=== PATIENT | female | born 1950 | race Caucasian/White ===

== ENCOUNTER 2018-05-29 11:04 | Emergency (ER) | payer BC, OTHER ==
[~2018-05-29] VITALS: Ht 167.6 cm; Wt 60.3 kg
[~2018-05-29 11:04] MED LIST: ALEN70TA2; PREG75CA; PRO20T; SUMA100T2
[2018-05-29 12:25] LABS: Basophils # (auto) 0 uL; Basophils % (auto) 0.7 % (0.0-2.0); Eosinophils # (auto) 0.1 uL; Eosinophils % (auto) 1.2 % (0.0-7.0); Hematocrit 39.5 % (36.0-46.0); Hemoglobin 13.5 g/dL (12.2-16.2); Lymphocytes # (auto) 1.2 uL; Lymphocytes % (auto) 23.8 % (10.0-50.0); Mean Corpuscular Hemoglobin 31.4 pg (28.0-32.0); Mean Corpuscular Hgb Conc. 34.2 g/dL (32.0-36.0); Mean Corpuscular Volume 91.7 fL (80.0-100.0); Monocytes # (auto) 0.4 uL; Monocytes % (auto) 8.1 % (0.0-12.0); Neutrophils # (auto) 3.3 uL; Neutrophils % (auto) 66.2 % (37.0-80.0); Nucleated Red Blood Cells % 0.1 %; Platelet Count (auto) 231 10^3/uL (140-450); Red Blood Cells 4.31 10^6/uL (4.0-5.20); Red Cell Distribution Width 13.3 % (11.8-14.3)
[2018-05-29 12:32] LABS: Calcium 8.6 mg/dL (8.5-10.1); Chloride 109 mmol/L (98-107); Sodium 143 mmol/L (136-145)
[2018-05-29 12:35] LABS: Albumin 3.9 g/dL (3.4-5.0); Anion Gap 10 (5-15); BUN/Creatinine Ratio 35.7; Blood Urea Nitrogen 25 mg/dL (7-18); Carbon Dioxide 24 mmol/L (21-32); GFR African American 107 mL/min; GFR Non-African American 88 mL/min; Glucose 88 mg/dL (74-106)
[2018-05-29 12:40] LABS: Alanine Aminotransferase 23 U/L (13-56); Alkaline Phosphatase 64 U/L (45-117); Aspartate Aminotransferase 21 U/L (15-37); Bilirubin, Total 0.4 mg/dL (0.2-1.0); Total Protein 7.4 g/dL (6.4-8.2)
[2018-05-29] MEDS ORDERED: IOHEXOL 350 MG/ML 100ML IJ ONE ×2 (13:13→13:48)
[2018-05-29 15:13] VITALS: BP 132/82
== END 2018-05-29 15:18 | disposition home or self-care (01) ==
LOC: EDBD 11:04 → ER 11:06
DX: R07.89 Other chest pain (principal); F41.9 Anxiety disorder, unspecified; Z88.5 Allergy status to narcotic agent; Z88.2 Allergy status to sulfonamides; Z79.899 Other long term (current) drug therapy; Z90.49 Acquired absence of other specified parts of digestive tract; Z90.710 Acquired absence of both cervix and uterus
CPT/HCPCS: 36415; 71046; 71275; 80053; 84484; 85025; 85379; 93005; 99284; Q9967

== ENCOUNTER → 2019-09-10 | Emergency (ER) | payer OTHER ==
[~2019-09-10] VITALS: Ht 167.6 cm; Wt 60.3 kg
[~2019-09-10] MED LIST changes: +ASPirin 81 mg TAB PO ONE; +LORazepam 0.5 MG TAB PO ONE
[2019-09-10 07:59] LABS: Basophils # (auto) 0 10 ^3/uL (0-0.2); Basophils % (auto) 0.7 % (0.0-2.0); Eosinophils # (auto) 0.1 10 ^3/uL (0-0.8); Eosinophils % (auto) 2.1 % (0.0-7.0); Hematocrit 40.8 % (36.0-46.0); Hemoglobin 13.9 g/dL (12.2-16.2); Lymphocytes # (auto) 1.1 10 ^3/uL (0.4-5.4); Lymphocytes % (auto) 18.7 % (10.0-50.0); Mean Corpuscular Hemoglobin 31.4 pg (28.0-32.0); Mean Corpuscular Volume 92.2 fL (80.0-100.0); Monocytes # (auto) 0.5 10 ^3/uL (0-1.3); Monocytes % (auto) 8.7 % (0.0-12.0); Neutrophils # (auto) 4.1 10 ^3/uL (1.6-8.6); Neutrophils % (auto) 69.8 % (37.0-80.0); Nucleated Red Blood Cells % 0.1 %; Platelet Count (auto) 222 10^3/uL (140-450); Red Blood Cells 4.42 10^6/uL (4.0-5.20); Red Cell Distribution Width 13.6 % (11.8-14.3); White Blood Cell 5.9 10^3/uL (4.4-10.8)
[2019-09-10 08:17] LABS: Urine WBC None Seen /hpf (0 - 5)
[2019-09-10 08:18] LABS: Alanine Aminotransferase 21 U/L (13-56); Albumin 3.8 g/dL (3.4-5.0); Anion Gap 5 (5-15); Blood Urea Nitrogen 24 mg/dL (7-18); Calcium 9.2 mg/dL (8.5-10.1); Carbon Dioxide 26 mmol/L (21-32); Chloride 108 mmol/L (98-107); Glucose 84 mg/dL (74-106); Sodium 139 mmol/L (136-145)
[2019-09-10 08:22] LABS: Alkaline Phosphatase 85 U/L (45-117); Aspartate Aminotransferase 21 U/L (15-37); BUN/Creatinine Ratio 30.4; Bilirubin, Total 0.5 mg/dL (0.2-1.0); GFR African American 93 mL/min; GFR Non-African American 77 mL/min; Total Protein 7.8 g/dL (6.4-8.2)
[2019-09-10 08:23] LABS: Urine Bacteria NONE SEEN /hpf (None Seen); Urine Blood Negative /uL (Negative); Urine Specific Gravity 1.006 (1.001-1.035)
[2019-09-10 09:10] VITALS: BP 133/59
== END | disposition home or self-care (01) ==
LOC: ER 06:58
DX: F41.9 Anxiety disorder, unspecified (principal); Z90.49 Acquired absence of other specified parts of digestive tract; Z90.710 Acquired absence of both cervix and uterus; Z88.5 Allergy status to narcotic agent; Z88.2 Allergy status to sulfonamides; Z91.048 Other nonmedicinal substance allergy status; Z79.899 Other long term (current) drug therapy
CPT/HCPCS: 36415; 71045; 80053; 81001; 84484; 85025; 93005

== ENCOUNTER 2020-10-28 13:47 | Emergency (ER) | payer OTHER ==
[~2020-10-28] VITALS: Ht 167.6 cm; Wt 60.3 kg
[~2020-10-28 13:47] MED LIST changes: -ASPirin 81 mg TAB PO ONE; -LORazepam 0.5 MG TAB PO ONE
[2020-10-28] MEDS ORDERED: PROMETHAZINE HCL 25 MG/ML 1ML IM ONE (15:45)
[2020-10-28] MEDS ORDERED: SUMAtriptan SUCCINATE 6 MG/0.5 ML VL SC ONE (15:45)
[2020-10-28 16:39] VITALS: BP 110/74
== END 2020-10-28 16:49 | disposition home or self-care (01) ==
LOC: ER 13:47
DX: G43.909 Migraine, unspecified, not intractable, without status migrainosus (principal); Z90.710 Acquired absence of both cervix and uterus; Z90.89 Acquired absence of other organs
CPT/HCPCS: 70450; 96372; 99284; J2550; J3030

== ENCOUNTER 2021-07-25 23:46 | Emergency (ER) | payer OTHER ==
[~2021-07-25] VITALS: Ht 167.6 cm; Wt 56.7 kg
[2021-07-26 01:00] VITALS: BP 117/66
[2021-07-26 01:20] LABS: Basophils # (auto) 0.1 10 ^3/uL (0-0.2); Basophils % (auto) 0.6 % (0.0-2.0); Eosinophils # (auto) 0.1 10 ^3/uL (0-0.8); Eosinophils % (auto) 1.2 % (0.0-7.0); Hematocrit 36.7 % (36.0-46.0); Hemoglobin 12.5 g/dL (12.2-16.2); Lymphocytes # (auto) 1.2 10 ^3/uL (0.4-5.4); Mean Corpuscular Hemoglobin 30.9 pg (28.0-32.0); Monocytes # (auto) 1.2 10 ^3/uL (0-1.3); Monocytes % (auto) 13.4 % (0.0-12.0); Neutrophils # (auto) 6.4 10 ^3/uL (1.6-8.6); Neutrophils % (auto) 71.8 % (37.0-80.0); Red Blood Cells 4.03 10^6/uL (4.0-5.20); Red Cell Distribution Width 12.7 % (11.8-14.3); White Blood Cell 8.8 10^3/uL (4.4-10.8)
[2021-07-26 01:32] LABS: Albumin 3.2 g/dL (3.4-5.0); BUN/Creatinine Ratio 13.9; Calcium 9.2 mg/dL (8.5-10.1); Potassium 3.9 mmol/L (3.5-5.1)
[2021-07-26 01:42] LABS: Bilirubin, Total 0.8 mg/dL (0.2-1.0)
[2021-07-26] MEDS ORDERED: diazePAM 2 MG TAB PO ONE (02:45)
[2021-07-27] MEDS ORDERED: HYDR-4798 PO (19:11)
== END 2021-07-26 04:53 | disposition home or self-care (01) ==
LOC: ER 23:46 → EDBD 23:46 → ER 07-26 04:53
DX: M54.50 Low back pain, unspecified (principal); R94.31 Abnormal electrocardiogram [ECG] [EKG]; Z76.5 Malingerer [conscious simulation]; Z90.710 Acquired absence of both cervix and uterus; Z88.2 Allergy status to sulfonamides; Z88.6 Allergy status to analgesic agent
CPT/HCPCS: 36415; 80053; 84484; 85025; 93005

== ENCOUNTER 2021-07-27 17:56 | Emergency (ER) | payer OTHER ==
[~2021-07-27] VITALS: Ht 167.6 cm; Wt 60.8 kg
[2021-07-27] MEDS ORDERED: MORPHINE SULFATE 4 MG/ML SYR/VIAL IM ONE (18:15)
[2021-07-27] MEDS ORDERED: HYDR-4798 PO (19:11)
[2021-07-27 21:23] VITALS: BP 148/89
== END 2021-07-27 21:59 | disposition home or self-care (01) ==
LOC: ER 17:56
DX: M79.10 Myalgia, unspecified site (principal); M54.2 Cervicalgia; Z90.49 Acquired absence of other specified parts of digestive tract; Z90.710 Acquired absence of both cervix and uterus; Z79.899 Other long term (current) drug therapy; Z88.5 Allergy status to narcotic agent; Z88.2 Allergy status to sulfonamides; Z88.8 Allergy status to other drugs, medicaments and biological substances
CPT/HCPCS: 96372; 99283; J2270

== ENCOUNTER 2022-02-07 10:42 | Emergency (ER) | payer OTHER ==
[~2022-02-07] VITALS: Ht 167.6 cm; Wt 64.0 kg
[~2022-02-07 10:42] MED LIST changes: +HYDR-4798 PO
[2022-02-07 10:58] VITALS: BP 139/79
[2022-02-07 11:30] LABS: Basophils # (auto) 0 10 ^3/uL (0-0.2); Basophils % (auto) 0.7 % (0.0-2.0); Eosinophils # (auto) 0.1 10 ^3/uL (0-0.8); Eosinophils % (auto) 1.2 % (0.0-7.0); Hematocrit 40.2 % (36.0-46.0); Hemoglobin 13.3 g/dL (12.2-16.2); Lymphocytes # (auto) 1.6 10 ^3/uL (0.4-5.4); Lymphocytes % (auto) 31.3 % (10.0-50.0); Mean Corpuscular Hemoglobin 30.5 pg (28.0-32.0); Mean Corpuscular Hgb Conc. 33.2 g/dL (32.0-36.0); Mean Corpuscular Volume 91.6 fL (80.0-100.0); Monocytes # (auto) 0.5 10 ^3/uL (0-1.3); Monocytes % (auto) 9.7 % (0.0-12.0); Neutrophils # (auto) 2.9 10 ^3/uL (1.6-8.6); Neutrophils % (auto) 57.1 % (37.0-80.0); Nucleated Red Blood Cells % 0.1 %; Red Blood Cells 4.38 10^6/uL (4.0-5.20); Red Cell Distribution Width 13.8 % (11.8-14.3)
[2022-02-07 11:43] LABS: Albumin 4.1 g/dL (3.4-5.0); Calcium 9.4 mg/dL (8.5-10.1); Potassium 4.6 mmol/L (3.5-5.1)
[2022-02-07 11:44] LABS: INR 0.95 (0.9-1.15); Partial Thromboplastin Time 26.8 sec (24.6-33.4)
[2022-02-07 13:09] LABS: BUN/Creatinine Ratio 28.8; Bilirubin, Total 0.5 mg/dL (0.2-1.0); Total Protein 7.4 g/dL (6.4-8.2)
== END 2022-02-07 14:06 | disposition home or self-care (01) ==
LOC: EDUNIT# 10:42 → EDBD 10:42 → ER 10:42
DX: R07.89 Other chest pain (principal); F41.9 Anxiety disorder, unspecified; M79.18 Myalgia, other site; Z90.710 Acquired absence of both cervix and uterus; Z88.2 Allergy status to sulfonamides; Z88.8 Allergy status to other drugs, medicaments and biological substances
CPT/HCPCS: 36415; 71046; 80053; 83880; 84484; 85025; 85610; 85730; 93005

== ENCOUNTER 2023-10-16 18:03 | Inpatient (IN) | payer OTHER ==
[~2023-10-16] VITALS: Ht 167.6 cm; Wt 63.6 kg
[~2023-10-16 18:03] MED LIST changes: -ALEN70TA2; +ALEN70TA21
[2023-10-16 19:30] VITALS: PULSE 79; RESP 26; O2SAT 97
[2023-10-16 19:57] LABS: Basophils # (auto) 0 10 ^3/uL (0-0.2); Basophils % (auto) 0.6 % (0.0-2.0); Eosinophils # (auto) 0.1 10 ^3/uL (0-0.8); Eosinophils % (auto) 1.5 % (0.0-7.0); Hematocrit 37.4 % (36.0-46.0); Hemoglobin 12.4 g/dL (12.2-16.2); Lymphocytes # (auto) 1.5 10 ^3/uL (0.4-5.4); Lymphocytes % (auto) 18.1 % (10.0-50.0); Mean Corpuscular Hemoglobin 30.8 pg (28.0-32.0); Mean Corpuscular Hgb Conc. 33.2 g/dL (32.0-36.0); Mean Corpuscular Volume 92.7 fL (80.0-100.0); Monocytes # (auto) 0.8 10 ^3/uL (0-1.3); Monocytes % (auto) 9.7 % (0.0-12.0); Neutrophils # (auto) 5.6 10 ^3/uL (1.6-8.6); Neutrophils % (auto) 70.1 % (37.0-80.0); Red Blood Cells 4.03 10^6/uL (4.0-5.20); Red Cell Distribution Width 13.4 % (11.8-14.3)
[2023-10-16 20:10] LABS: Chloride 111 mmol/L (98-107); Potassium 3.8 mmol/L (3.5-5.1); Sodium 142 mmol/L (136-145)
[2023-10-16 20:11] LABS: Anion Gap 4 (5-15); Carbon Dioxide 27 mmol/L (20-30)
[2023-10-16 20:12] LABS: Calcium 9.4 mg/dL (8.7-10.4)
[2023-10-16 20:17] LABS: BUN/Creatinine Ratio 24.5 (10.0-20.0); Blood Urea Nitrogen 23 mg/dL (9-23); Glucose 101 mg/dL (74-106); Lipase 164 U/L (12-53)
[2023-10-16 21:16] LABS: Urine Bacteria None Seen /hpf (None Seen)
[2023-10-16 21:33] LABS: Urine Blood Negative /uL (Negative); Urine Clarity Clear (Clear); Urine Color Light-Yellow (Yellow); Urine Protein, UAD Negative (Negative); Urine Specific Gravity 1.012 (1.001-1.035); Urine Urobilinogen Normal (Negative); Urine WBC 1 /hpf (0 - 5); Urine pH 7.5 (5.0-9.0)
[2023-10-17] VITALS (9 sets, daily range): BP systolic 112–150; BP diastolic 60–77; PULSE 63–83; RESP 1–19; TEMP 97.4–98.2; O2SAT 95–98
[2023-10-17] MEDS ORDERED: MORPHINE SULFATE INJ 2 MG/ml SYRG IV PRN (00:15)
[2023-10-17] MEDS ORDERED: ACETAMINOPHEN 325 MG TAB PO PRN (00:15)
[2023-10-17] MEDS ORDERED: NITROGLYCERIN 0.4 MG SL TAB SL PRN (00:15)
[2023-10-17] MEDS ORDERED: DOCUSATE SOD 100 MG CAP PO PRN (00:15)
[2023-10-17] MEDS ORDERED: ONDANSETRON HCL 4 MG/2 ML VIAL IV PRN (00:15)
[2023-10-17] MEDS ORDERED: HYDROcodone-ACET 5/325MG TAB PO PRN (00:15)
[2023-10-17] MEDS: SODIUM CHLORIDE 0.9% 1,000 ML IV SCH (00:32)
[2023-10-17] MEDS: DOCUSATE SOD 100 MG CAP PO SCH (03:19)
[2023-10-17 06:31] LABS: Chloride 113 mmol/L (98-107); Potassium 4.2 mmol/L (3.5-5.1); Sodium 143 mmol/L (136-145)
[2023-10-17 06:32] LABS: Anion Gap 5 (5-15); Carbon Dioxide 25 mmol/L (20-30)
[2023-10-17 06:33] LABS: Calcium 9.1 mg/dL (8.5-10.1)
[2023-10-17 06:37] LABS: BUN/Creatinine Ratio 25.3 (10.0-20.0); Blood Urea Nitrogen 19 mg/dL (9-23); Glucose 84 mg/dL (74-106)
[2023-10-17 06:53] LABS: Basophils # (auto) 0 10 ^3/uL (0-0.2); Basophils % (auto) 0.8 % (0.0-2.0); Eosinophils # (auto) 0.1 10 ^3/uL (0-0.8); Eosinophils % (auto) 1.9 % (0.0-7.0); Hematocrit 36.9 % (36.0-46.0); Hemoglobin 12.5 g/dL (12.2-16.2); Lymphocytes # (auto) 1.3 10 ^3/uL (0.4-5.4); Lymphocytes % (auto) 24.2 % (10.0-50.0); Mean Corpuscular Hemoglobin 31.5 pg (28.0-32.0); Mean Corpuscular Volume 92.8 fL (80.0-100.0); Monocytes # (auto) 0.5 10 ^3/uL (0-1.3); Monocytes % (auto) 9.7 % (0.0-12.0); Neutrophils # (auto) 3.3 10 ^3/uL (1.6-8.6); Neutrophils % (auto) 63.4 % (37.0-80.0); Red Blood Cells 3.97 10^6/uL (4.0-5.20); Red Cell Distribution Width 13.7 % (11.8-14.3); White Blood Cell 5.2 10^3/uL (4.4-10.8)
[2023-10-17 06:54] LABS: Lipase 69 U/L (12-53)
[2023-10-17] MEDS: ENOXAPARIN SOD 40 MG/0.4 ML SYRINGE SC SCH (09:51)
== END 2023-10-17 21:18 | disposition home or self-care (01) | DRG 440 ==
LOC: EDBD 18:03 → ER 18:09 → OVERFLOW 10-17 00:09 → WEST WING 10-17 03:51 → OBSVTOIN 10-17 09:10
PROVIDERS: ADMIT Nurse Practitioner Family; ATTEND Internal Medicine
DX: K85.90 Acute pancreatitis without necrosis or infection, unspecified (principal); K59.00 Constipation, unspecified; M81.0 Age-related osteoporosis without current pathological fracture; F41.9 Anxiety disorder, unspecified; F32.A Depression, unspecified; Z88.2 Allergy status to sulfonamides; Z90.710 Acquired absence of both cervix and uterus; Z91.048 Other nonmedicinal substance allergy status; Z79.899 Other long term (current) drug therapy
CPT/HCPCS: 36415; 74176; 80048; 81001; 83690; 85025; G0378

== ENCOUNTER 2024-08-17 08:20 | Emergency (ER) | payer OTHER ==
[~2024-08-17] VITALS: Ht 167.6 cm; Wt 62.7 kg
[2024-08-17 09:31] VITALS: BP 129/78; PULSE 75; RESP 17; TEMP 97.9; O2SAT 98
--- NOTE | 2024-08-17 10:53 | DVH ---
BILATERAL LOWER EXTREMITY VENOUS DOPPLER CLINICAL HISTORY: BILATERAL PAIN TO THE CALFS Technique: Duplex Doppler evaluation of the deep venous systems of both lower extremities from the co mmon femoral veins to the popliteal veins including color Doppler and spectral/pulsed waveform analys is was performed. COMPARISON: None FINDINGS: The right and left common femoral, superficial femoral, popliteal, posterior tibial veins and trifur cations appear patent with normal augmentation, phasicity, compressibility and color-flow. IMPRESSION: 1. There is no sonographic evidence for DVT in the lower extremities. HS:Y
--- NOTE | 2024-08-17 10:59 | ED.PDOC ---
Musculoskeletal HPI Comments 24-year-old presents with a chief complaint of bilateral posterior calf pain over four weeks. Pain has been persistent and onset occurred after her Frisian Zaidi ran into her with a reclined. Pain worsens with ambulation. Pain is described as throbbing rated as mild to moderate Denies chest pain shortness of breath Chief Complaint: Lower Extremity Time Seen by MD: 08:56 Primary Care Provider: miguel Reviewed Notes: Nurses Notes, Medications, Allergies Allergies: Coded Allergies: Codeine (Verified Allergy, Unknown, 09/10/19) Sulfa Drugs (Verified Allergy, Unknown, 09/10/19) Uncoded Allergies: CODINE (Allergy, Intermediate, 12/08/10) SULFA (Allergy, Intermediate, 12/08/10) TAPE (Allergy, Mild, 12/08/10) Home Meds Active Scripts Hydrocodone-Acetaminophen (Hydrocodone Bitartrate/AC 10-325 mg) 1 Tab Tab, 1 TAB PO Q6HP PRN, #20 TAB Prov:INGRID HART DO 07/27/21 Reported Medications Sumatriptan Succinate (Imitrex) 100 Mg Tab, PRN 12/08/10 Propranolol Hcl (Inderal) 20 Mg Tb, 10 BID 12/08/10 Pregabalin (Lyrica) 75 Mg Cap, BID 12/08/10 Alendronate Sodium (Fosamax) 70 Mg Tab, QWEEKLY 12/08/10 Information Source: Patient Mode of Arrival: Ambulatory Past Medical History PAST MEDICAL HISTORY: Anxiety, Depression Surgical History: Appendectomy, Hernia Repair, Hysterectomy TIME STUDY TECHNOLOGIST History: No Pertinent TIME STUDY TECHNOLOGIST History Family History Family History: No family hx of Heart binu, No family hx of HTN Family History (Other): Blood clots Social History Smoker: Non-Smoker Alcohol: Rarely Drugs: Denies Drug Use Lives In: Home All Other Systems: Reviewed and Negative (per hpi) Physical Exam General Appearance: No Apparent Distress, Normal HEENT: Normal ENT Inspection, Pharynx Normal, TMs Normal Neck: Full Range of Motion, Non-Tender, Normal, Normal Inspection Respiratory: Chest Non-Tender, Lungs Clear, No Accessory Muscle Use, No Respiratory Distress, Normal Breath Sounds Cardiovascular: No Edema, No JVD, No Murmur, No Gallop, Normal Peripheral Pulses, Regular Rate/Rhythm Breast Exam: Deferred Gastrointestinal: No Organomegaly, Non Tender, No Pulsatile Mass, Normal Bowel Sounds, Soft Genitalia: Deferred Pelvic: Deferred Rectal: Deferred Extremities: No calf tenderness, Normal capillary refill, Normal inspection, Normal range of motion, Non-tender, No pedal edema Musculoskeletal : Location: Bilateral Extremity Location: Leg (No erythema below the knees. Mild swelling bilater ally. No pitting edema. Homans test negative) Apperance: Normal Neurologic: Alert, academic advising director II-XII nml as Tested, No Motor Deficits, Normal Affect, Normal Mood, No Sensory Deficits Cerebellar Function: Normal Reflexes: Normal Skin: Dry, Normal Color, Warm Lymphatic: No Adenopathy Was a procedure done? Was a procedure done?: No Differential Diagnosis EXT Differential Diagnosis: Deep Vein Thrombosis, Sprain X-Ray, Labs, Meds, VS Vital Signs Date Time Temp Pulse Resp B/P (MAP) Pulse Ox O2 Delivery O2 Flow Rate FiO2 08/17/24 09:31 75 17 98 Room Air 08/17/24 09:31 97.9 75 17 129/78 (95) 98 97.9 08/17/24 08:41 97.9 75 17 129/78 (95) 98 97.9 X-Ray, Labs, Meds, VS Comment 74-year-old presents with signs and symptoms of a possible DVT. Differentials considered but not limited to thrombophlebitis, trauma, venous stasis. Bilateral ultrasound ordered and findings were negative. The patient is overall stable in the emergency department. VSS on room air. No other concern for any red flags at this time. On reevaluation, patient had symptomatic improvement. Patient is stable for discharge at this time. External notes reviewed. Test results and diagnostic imaging interpreted. All diagnostic findings, discharge care, education and instructions provided Follow-up with PCP in 2 to 3 days Patient verbalized understanding and agreed to treatment plan Vital signs stable, afebrile, no acute distress noted Patient ambulatory with strong steady gait Advised to return precautions for any new or worsening symptoms, return to ER immediately for re-evaluation Patient is aware that the purpose of this visit was for an acute medical emergency requiring emergent stabilization. Chronic conditions, including malignancies have not been ruled out. Patient is instructed to follow up with PCP as directed and discharge instructions for continued care and workup. If yahaira ble to arrange follow-up, patient is to return to the emergency department for reassessment. Patient (parent or legal guardian if applicable) was given verbal and written discharge instructions and acknowledges understanding. Time of 1ST Reevaluation: 10:57 Reevaluation 1ST: Improved Patient Education/Counseling: Diagnosis, Treatment Family Education/Counseling: Diagnosis, Treatment Departure 1 Departure Time of Disposition: 10:59 Impression: Primary Impression: Leg pain Qualified Codes: M79.604 - Pain in right leg; M79.605 - Pain in left leg Disposition: 01 HOME / SELF CARE / HOMELESS Condition: Stable Discharged With: Self Critical Care Note Critical Care Time?: No Stability Stability form required: No Heart Score Heart Score: Heart Score Response (Comments) Value History N/A 0 EKG N/A 0 Age N/A 0 Risk Factors N/A 0 Troponin N/A 0 Total 0 ASHLY ROMAN LINE DECORATOR Aug 17, 2024 10:59
== END 2024-08-17 11:40 | disposition home or self-care (01) ==
LOC: ER 08:20
DX: M79.669 Pain in unspecified lower leg (principal); F41.9 Anxiety disorder, unspecified; F32.A Depression, unspecified; Z90.710 Acquired absence of both cervix and uterus; Z98.890 Other specified postprocedural states; Z90.49 Acquired absence of other specified parts of digestive tract; Z88.5 Allergy status to narcotic agent; Z88.2 Allergy status to sulfonamides
CPT/HCPCS: 93970

== ENCOUNTER 2024-11-22 08:26 | Emergency (ER) | payer OTHER ==
[~2024-11-22] VITALS: Ht 167.6 cm; Wt 62.0 kg
--- NOTE | 2024-11-22 09:02 | ED.PDOC ---
Musculoskeletal HPI Comments 74 year old female with a past medical history of arthritis, DDD, osteoporosis, anxiety, presents to the emergency department with a chief complaint of Lt leg pain onset 3 months. Patient states she had an injury in June 2024, fell, landed on LT side and since then has seen 4 different doctors, has been tested for blood clots, was negative. Patient has a follow up appointment with a vascular surgeon next month. Patient noticed for the past week, pain on LT groin has worsen, radiates to inner thigh. She has been taking Tramadol and low dosage Aspirin with no relief of symptoms. Patient also noticed pain and swelling on bilateral lower extremities worsens with standing and ambulation, Lt toes tin gling sensation. No other symptoms or modifying factors present at this time. Denies previous surgeries Denies fever chills night sweats nausea vomiting Denies CP/SOB Chief Complaint: Lower Extremity Time Seen by MD: 08:45 Primary Care Provider: miguel Reviewed Notes: Nurses Notes, Medications, Allergies Allergies: Coded Allergies: Codeine (Verified Allergy, Unknown, 09/10/19) Sulfa Drugs (Verified Allergy, Unknown, 09/10/19) Uncoded Allergies: CODINE (Allergy, Intermediate, 12/08/10) SULFA (Allergy, Intermediate, 12/08/10) TAPE (Allergy, Mild, 12/08/10) Home Meds Active Scripts Hydrocodone-Acetaminophen (Hydrocodone Bitartrate/AC 10-325 mg) 1 Tab Tab, 1 TAB PO Q6HP PRN, #20 TAB Prov:INGRID HART DO 07/27/21 Reported Medications Sumatriptan Succinate (Imitrex) 100 Mg Tab, PRN 12/08/10 Propranolol Hcl (Inderal) 20 Mg Tb, 10 BID 12/08/10 Pregabalin (Lyrica) 75 Mg Cap, BID 12/08/10 Alendronate Sodium (Fosamax) 70 Mg Tab, QWEEKLY 12/08/10 Information Source: Patient Mode of Arrival: Ambulatory Location: Bilateral Extremity Location: Leg Timing: Months Prehospital treatment: Other (Tramadol, aspirin) Severity: Moderate Able to Move Extremity: Yes Bear Weight: Limited Pain: Moderate Symptoms: Swelling, Pain DVT Risk Factors: NONE History of: Arthritis Associated signs and symptoms: Numbness (Lt toes), Leg pain (bilateral) Past Medical History PAST MEDICAL HISTORY: Anxiety, Arthritis, Depression Past Medical History (Other): DDD, osteoporosis Surgical History: Appendectomy, Hernia Repair, Hysterectomy SUPPORT MANAGER History: No Pertinent SUPPORT MANAGER History Family History Family History: No family hx of Heart binu, No family hx of HTN Family History (Other): Blood clots Social History Smoker: Non-Smoker Alcohol: Rarely Drugs: Denies Drug Use Lives In: Home All Other Systems: Reviewed and Negative (as per HPI) Physical Exam General Appearance: Normal HEENT: Normal ENT Inspection, Pharynx Normal, TMs Normal Neck: Full Range of Motion, Non-Tender, Normal, Normal Inspection Respiratory: Chest Non-Tender, Lungs Clear, No Accessory Muscle Use, No Respiratory Distress, Normal Breath Sounds Cardiovascular: No Murmur, No Gallop, Regular Rate/Rhythm Breast Exam: Deferred Gastrointestinal: No Organomegaly, Non Tender, No Pulsatile Mass, Normal Bowel Sounds, Soft Genitalia: Deferred Pelvic: Deferred Rectal: Deferred Extremities: No calf tenderness, Normal capillary refill, Normal inspection, Normal range of motion, Non-tender, No pedal edema Musculoskeletal : Location: Bilateral Extremity Location: Leg (Bilateral lower extremity: No deformity, no ecchymosis, no erythema, no abrasions no lacerations no open wounds. Mild bilateral lower extremity edema. Plus one pitting edema bilaterally. Full passive and active range of motion of the bilateral knees. Dorsiflexion plantar flexion strong. No pain to the medial lateral malleolus. No pain to the Achilles. DP 1+ bilaterally. Cap refill less than three and neurovascularly sensation is intact) Apperance: Normal Neurologic: Alert, cath lab technologist II-XII nml as Tested, No Motor Deficits, Normal Affect, Normal Mood, No Sensory Deficits Cerebellar Function: Normal Reflexes: Normal Skin: Dry, Normal Color, Warm Lymphatic: No Adenopathy Was a procedure done? Was a procedure done?: No Differential Diagnosis EXT Differential Diagnosis: Fracture, Sprain, Arthritis, Bursitis, Other X-Ray, Labs, Meds, VS Vital Signs Date Time Temp Pulse Resp B/P (MAP) Pulse Ox O2 Delivery O2 Flow Rate FiO2 11/22/24 11:10 84 17 100 Room Air 11/22/24 11:10 98.7 84 17 144/86 (105) 100 98.7 11/22/24 09:16 18 98 Room Air* 0 21 11/22/24 09:05 83 11/22/24 08:35 98.7 104 24 94/72 (79) 97 98.7 11/22/24 08:34 98.7 104 24 94/72 (79) 97 98.7 Lab Test 11/22/24 09:30 11/22/24 09:15 Range/Units Urine Color Yellow Yellow Urine Clarity Clear Clear Urine pH 5.5 5.0-9.0 Urine Specific [place] 1.023 1.001-1.035 Urine Protein Negative Negative Urine Ketones 1+ H Negative Urine Blood Negative Negative /uL Urine Nitrite Negative Negative Urine Bilirubin Negative Negative Urine Urobilinogen Normal Negative mg/dL Urine Leukocyte Esterase 3+ Negative /uL Urine RBC 4 0 - 4 /hpf Urine Microscopic WBC 2 0-5 /HPF Urine Squamous Epithelial Cells Few <5 /hpf Urine Bacteria Few H None Seen /hpf Urine Mucus Few None Seen Urine Glucose Normal Normal mg/dL White Blood Count 8.4 4.4-10.8 10^3/uL Red Blood Count 4.36 4.0-5.20 10^6/uL Hemoglobin 13.7 12.2-16.2 g/dL Hematocrit 39.8 36.0-46.0 % Mean Corpuscular Volume 91.3 80.0-100.0 fL Mean Corpuscular Hemoglobin 31.4 28.0-32.0 pg Mean Corpuscular Hemoglobin Concent 34.4 32.0-36.0 g/dL Red Cell Distribution Width 13.5 11.8-14.3 % Platelet Count 218 140-450 10^3/uL Mean Platelet Volume 7.9 6.9-10.8 fL Neutrophils (%) (Auto) 70.2 37.0-80.0 % Lymphocytes (%) (Auto) 18.7 10.0-50.0 % Monocytes (%) (Auto) 9.1 0.0-12.0 % Eosinophils (%) (Auto) 1.3 0.0-7.0 % Basophils (%) (Auto) 0.7 0.0-2.0 % Neutrophils # (Auto) 5.9 1.6-8.6 10 ^3/uL Lymphocytes # (Auto) 1.6 0.4-5.4 10 ^3/uL Monocytes # (Auto) 0.8 0-1.3 10 ^3/uL Eosinophils # (Auto) 0.1 0-0.8 10 ^3/uL Basophils # (Auto) 0.1 0-0.2 10 ^3/uL Nucleated Red Blood Cells 0.0 % Erythrocyte Sedimentation Rate 20 0-20 mm/hr Sodium Level 140 136-145 mmol/L Potassium Level 4.0 3.5-5.1 mmol/L Chloride Level 104 98-107 mmol/L Carbon Dioxide Level 27 20-31 mmol/L Anion Gap 9 5-15 Blood Urea Nitrogen 27 H 9-23 mg/dL Creatinine 0.87 0.550-1.02 mg/dL Glomerular Filtration Rate Calc 70 >90 mL/min BUN/Creatinine Ratio 31.0 H 10.0-20.0 Serum Glucose 83 74-106 mg/dL Calcium Level 10.3 8.7-10.4 mg/dL Total Bilirubin 0.8 0.2-1.0 mg/dL Aspartate Amino Transferase (AST) 28 13-40 U/L Alanine Aminotransferase (ALT) 17 7-40 U/L Alkaline Phosphatase 91 46-116 U/L Troponin I High Sensitivity < 3 L </=34 ng/L C-Reactive Protein High Sensitivity 1.64 H <1.0 mg/dL Total Protein 7.3 5.7-8.2 g/dL Albumin 4.9 H 3.2-4.8 g/dL X-Ray, Labs, Meds, VS Comment 74 year old female with a past medical history of arthritis, DDD, osteoporosis, anxiety, presents to the emergency department with a chief complaint of Lt leg pain onset 3 months. Patient arrives alert and oriented, ABC's intact, afebrile, vital signs stable, saturating well in room air CBC was ordered to exclude anemia, blood loss, or infection. CMP was ordered to exclude electrolyte abnormalities, renal failure, dehydration, hyperglycemia and/or liver enzyme abnormalities. Troponin was ordered to rule out myocardial infarction, or congestive heart failure. Urinalysis was ordered to rule out UTI or hematuria..3 ESR was ordered. C-reactive protein was ordered. Diagnostic imaging ordered by me and results interpreted by radiology : US BILAT LOWER DVT: US BILAT LOWER EXT ART DUPLEX: XY L HIP COMPLETE: XY CHEST 1 VIEW: The patient presents with signs and symptoms concerning for deep venous thrombosis. The differential diagnosis includes but is not limited to: DVT, thrombophlebitis, trauma, venous stasis, peripheral edema, cellulitis. PE Workup: The patient denies having any shortness of breath, dyspnea on exertion. Additionally, the patient was not hypoxic therefore no indication for further chest imaging to evaluate for PE. The patient was overall stable while in the ED. They had normal oxygenation on room air and did not require any supplemental oxygen. Heart rate has remained stable while in the ED. Nontoxic appearing. No lymphangitic spread visible. No fluid pockets or fluctuance concerning for abscess. Low concern for cellulitis or osteomyelitis. No evidence of phlegmasia cerulea or alba dolens. Focal and unilateral nature not consistent with heart failure. Patient is stable for discharge at this time. External notes reviewed. Test results and diagnostic imaging interpreted. All diagnostic findings, discharge care, education and instructions provided Follow-up with PCP in 2 to 3 days Patient verbalized understanding and agreed to treatment plan Vital signs stable, afebrile, no acute distress noted Patient ambulatory with strong steady gait Advised to return precautions for any new or worsening symptoms, return to ER immediately for re-evaluation Patient is aware that the purpose of this visit was for an acute medical emergency requiring emergent stabilization. Chronic conditions, including malignancies have not been ruled out. Patient is instructed to follow up with PCP as directed and discharge instructions for continued care and workup. If unable to arrange follow-up, patient is to return to the emergency department for reassessment. Patient (parent or legal guardian if applicable) was given verbal and written discharge instructions and acknowledges understanding. Additional MDM Review of External, Non-ED records: External records reviewed. Discussion with independent historian (EMS, family) history obtained from the patient/parents (if applicable) at bedside Chronic conditions affecting care: DDD, arthritis, osteoporosis, anxiety Social determinants of health affecting care: None Consideration of admission (observation or admission): I considered escalation of care to admission for this patient, however given the reassuring workup, the patient is safe for outpatient management. Time of 1ST Reevaluation: 09:15 Reevaluation 1ST: Improved Time of 2ND Reevaluation: 11:00 Reevaluation 2ND: Improved Patient Education/Counseling: Diagnosis, Treatment Family Education/Counseling: No Family Present Departure 1 Departure Time of Disposition: 11:41 Impression: Primary Impression: Bilateral hip joint arthritis Disposition: 01 HOME / SELF CARE / HOMELESS Condition: Fair Discharged With: Self Critical Care Note Critical Care Time?: No Stability Stability form required: No Heart Score Heart Score: Heart Score Response (Comments) Value History N/A 0 EKG N/A 0 Age N/A 0 Risk Factors N/A 0 Troponin N/A 0 Total 0 I personally scribed for ASHLY ROMAN NP ([email or web address]) on 11/22/24 at 09:02. Electronically submitted by Mirna Crisostomo ([email or web address]). I personally scribed for ASHLY ROMAN NP ([email or web address]) on 11/22/24 at 09:05. Electronically submitted by Mirna Crisostomo ([email or web address]). ASHLY ROMAN NP Nov 22, 2024 09:02
--- NOTE | 2024-11-22 09:14 | ECG ---
[facility] Test Date: 2024-11-22 Test Time: 09:05:28 Pat Name: JOSÉ MANUEL CHRISTINA Department: [facility] ED Patient ID: [facility]-[id number] Room: Gender: F Data Scientist: SS : 1950 Requested By: ASHLY ROMAN Order Number: [id number] Reading MD: Jose Burr Measurements Intervals [place] Rate: 83 P: 63 VA: 138 QRS: 100 QRSD: 91 T: 31 QT: 372 QTc: 437 Interpretive Statements Sinus rhythm Right axis deviation Low voltage, precordial leads Borderline T abnormalities, anterior leads Baseline wander in lead(s) I,III,aVL Electronically Signed On 11-24-2024 17:49:42 PDT by Jose Burr Please click the below link to view image of tracing.
[2024-11-22 09:16] VITALS: RESP 18; O2SAT 98
[2024-11-22 09:43] LABS: Hematocrit 39.8 % (36.0-46.0); Hemoglobin 13.7 g/dL (12.2-16.2); Mean Corpuscular Hemoglobin 31.4 pg (28.0-32.0); Mean Corpuscular Volume 91.3 fL (80.0-100.0); Nucleated Red Blood Cells % 0.0 %
--- NOTE | 2024-11-22 09:43 | DVH ---
INDICATION: Pain TECHNIQUE: Single AP view of the pelvis was obtained. COMPARISON: None FINDINGS: The pelvic ring appears intact.There is no evidence of acute fracture or dislocation.Bilate ral hip joints appear unremarkable without evidence of joint space narrowing. The lower lumbar spine and bilateral sacroiliac joints appear unremarkable without evidence of fusion.The alignment is anato mical.The surrounding soft tissues are unremarkable. IMPRESSION: No acute fracture. Mild bilateral osteoarthritis.
--- NOTE | 2024-11-22 09:43 | DVH ---
CHEST RADIOGRAPH Indication: r/o pna, serious pathology Technique: Single frontal view of the chest was obtained Comparison: EKG on DOS: 02/07/22, CHEST PORTABLE on DOS: 09/10/19 FINDINGS: Lines and Tubes: None Lungs: No focal consolidation. Pleura: No effusion. No pneumothorax. Cardiomediastinal contours: Unremarkable Bones: No acute osseous abnormality. IMPRESSION: No acute cardiopulmonary disease.
[2024-11-22 09:53] LABS: Alanine Aminotransferase 17 U/L (7-40); Alkaline Phosphatase 91 U/L (46-116); Anion Gap 9 (5-15); BUN/Creatinine Ratio 31.0 (10.0-20.0); Calcium 10.3 mg/dL (8.7-10.4); Carbon Dioxide 27 mmol/L (20-31); Chloride 104 mmol/L (98-107); Glucose 83 mg/dL (74-106); Potassium 4.0 mmol/L (3.5-5.1); Sodium 140 mmol/L (136-145); Total Protein 7.3 g/dL (5.7-8.2)
[2024-11-22 09:54] LABS: Bilirubin, Total 0.8 mg/dL (0.2-1.0)
[2024-11-22 10:04] LABS: Albumin 4.9 g/dL (3.2-4.8); Blood Urea Nitrogen 27 mg/dL (9-23)
[2024-11-22 11:10] VITALS: BP 144/86; PULSE 84; RESP 17; TEMP 98.7; O2SAT 100
[2024-11-22 11:11] LABS: Urine Protein, UAD Negative (Negative)
--- NOTE | 2024-11-22 11:34 | DVH ---
Indication: R/o PAD Technique: Real- time ultrasound images of the lower extremity with grayscale, color, and spectral wave Doppler. Comparison: None Findings: Biphasic / triphasic waveforms throughout the bilateral lower extremities. Peak systolic velocities are as follows (in cm/s): Right: Common femoral artery: 80 Profunda femoris: 67 Proximal superficial femoral: 89 Mid superficial femoral artery: 56 Distal superficial femoral artery: 65 Popliteal artery: 59 Posterior tibial artery: 67 Dorsalis pedis artery: 56 Left: Common femoral artery: 99 Profunda femoris: 80 Proximal superficial femoral: 108 Mid superficial femoral artery: 79 Distal superficial femoral artery: 58 Popliteal artery: 62 Posterior tibial artery: 73 Dorsalis pedis artery: 54 Impression: No sonographic evidence for hemodynamically significant stenosis.
--- NOTE | 2024-11-22 11:36 | DVH ---
Technique: Real-time ultrasound imaging, with color Doppler and compression of the bilateral common femoral vein, femoral vein, greater saphenous vein, and popliteal vein. Indication: r/o dvt Comparison: US BILAT LOWER DVT on DOS: 08/17/24 Findings: There is normal compressibility and flow augmentation in all of the imaged deep veins. There are no f illing defects. Impression: No evidence of DVT in the bilateral lower extremities
== END 2024-11-22 12:01 | disposition home or self-care (01) ==
LOC: ER 08:26
DX: M19.90 Unspecified osteoarthritis, unspecified site (principal); M25.551 Pain in right hip; M25.552 Pain in left hip; F41.9 Anxiety disorder, unspecified; F32.A Depression, unspecified; Z90.49 Acquired absence of other specified parts of digestive tract; Z90.710 Acquired absence of both cervix and uterus; Z98.890 Other specified postprocedural states; Z88.2 Allergy status to sulfonamides; Z88.5 Allergy status to narcotic agent
CPT/HCPCS: 36415; 71045; 73502; 80053; 81001; 84484; 85025; 85652; 86141; 93005; 93925; 93970

== ENCOUNTER 2025-02-23 19:45 | Emergency (ER) | payer OTHER ==
[~2025-02-23] VITALS: Ht 167.6 cm; Wt 63.2 kg
[2025-02-23 19:49] VITALS: TEMP 98.3
--- NOTE | 2025-02-23 20:03 | ECG ---
[facility] Test Date: 2025-02-23 Test Time: 20:01:05 Pat Name: JOSÉ MANUEL CHRISTINA Department: ED Room: Gender: F Parking Worker: TARIQ : 1950 Requested By: REBECA COVARRUBIAS Order Number: [id number] Reading MD: Measurements Intervals [place] Rate: 72 P: 35 ND: 151 QRS: 69 QRSD: 87 T: 36 QT: 411 QTc: 450 Interpretive Statements Sinus rhythm Probable left atrial enlargement Consider anterior infarct Please click the below link to view image of tracing.
--- NOTE | 2025-02-23 20:20 | DVH ---
CHEST RADIOGRAPH Indication: CHEST PAIN Technique: Frontal and lateral view of the chest was obtained Comparison: XY CHEST XRAY 1 VIEW on DOS: 11/22/24, CR CHEST 2 VIEW on DOS: 02/02/24, CHEST TWO VIEWS RO UTINE on DOS: 02/07/22, CXR2 on DOS: 02/07/22, EKG on DOS: 02/07/22 FINDINGS: Lines and Tubes: None Lungs: Clear Pleura: No effusion. No pneumothorax. Cardiomediastinal contours: Unremarkable Bones: Unremarkable IMPRESSION: 1. No evidence of acute disease.
[2025-02-23 20:28] LABS: Potassium 4.1 mmol/L (3.5-5.1)
[2025-02-23 20:29] LABS: Anion Gap 10 (5-15); Calcium 9.6 mg/dL (8.7-10.4); Carbon Dioxide 28 mmol/L (20-31)
[2025-02-23 20:30] LABS: Hematocrit 38.7 % (36.0-46.0); Hemoglobin 13.0 g/dL (12.2-16.2); Mean Corpuscular Hemoglobin 30.6 pg (28.0-32.0); Mean Corpuscular Volume 90.9 fL (80.0-100.0); Nucleated Red Blood Cells % 0.1 %
[2025-02-23 20:34] LABS: BUN/Creatinine Ratio 30.9 (10.0-20.0)
[2025-02-23 21:01] LABS: Blood Urea Nitrogen 29 mg/dL (9-23); Chloride 107 mmol/L (98-107); Glucose 68 mg/dL (74-106); Sodium 145 mmol/L (136-145)
[2025-02-23] MEDS: NITROGLYCERIN 0.4 MG SL TAB SL ONE (21:06)
[2025-02-23] MEDS: ASPirin-EC 325mg tab PO ONE (21:06)
--- NOTE | 2025-02-23 21:45 | ED.PDOC ---
HPI Comments 74-year-old female who presents to the ED for chief complaint of chest pain Patient states he has been having left sided chest pain for the past one days. Patient states the pain is constant non-radiating with noted exacerbation of pain when lying flat and no relieving factors Patient in the ED has noted blood pressure 150/86 with otherwise stable vitals Patient denies any history of blood clots but states there is a family history of blood clots Patient is currently not on any blood thinners at this time Patient in the ED otherwise denies any other symptoms. Past medical history: Osteoporosis Past surgical history: Cervical fusion surgery, back surgery, bladder lift, right leg surgery, Medications: Celebrex Social history: Denies ETOH use, denies tobacco use, denies drug use, Allergies: Codeine, sulfa drugs, [place]: :Narciso LINDER. HPI: Poor Historian. 74-year-old female presents to emergency department for evaluation of left anterior chest wall pain that is tender to palpation. Patient points to a very localized area of her anterior ribcage under her breast but not involving the breast tissue itself. Denies any fall or trauma or injury. Patient has an appointment with the PCP tomorrow. Patient denies any history of any blood clots however she states she has family history of blood clots. She is not on any blood thinners. Pain is worse with laying flat. Patient denies any other associated symptoms. Past Medical History: Past Surgical History: REVIEW OF SYSTEMS: CONSTITUTIONAL: Denies acute: fever, diaphoresis, chills, generalized weakness. HEAD: Denies acute: headache, photophobia Eyes: Denies acute: Double vision, vision loss, eye pain, eye discharge. EARS: Denies acute: tinnitus, hearing loss, ear discharge, ear pain, THROAT: Denies acute: sore throat, swelling, difficulty swallowing , pain with swallowing, change in voice. NECK: Denies acute: neck pain, neck swelling, stiff neck. HEART: Denies acute : palpitations, LUNGS: Denies acute: SOB, wheezing, cough, hemoptysis ABDOMEN: Denies acute: abdominal pain, Nausea, Vomiting, diarrhea, melena , hematemesis, hematochezia SKIN: Denies acute: rash, redness, lesions, itchiness. EXTREMITIES: Denies acute: calf pain, numbness, tingling, weakness, denies pain in extremity. Denies acute: Low back pain. Neuro: Denies acute: focal neurological deficit, motor or sensory focal neurological deficit, tremors, seizure like activity, confusion, dizziness, change in mental status, loss of bowel or bladder function, cauda equina like symptoms. : Denies acute: dysuria, hematuria, flank pain, increase in urinary frequency. PSYCH: Denies acute: hallucination, suicidal ideation, homicidal ideation. FEMALE: Denies acute: abnormal vaginal bleeding, foul odor, unusual discharge. PHYSICAL EXAM: General: -----mild---acute distress, awake and alert. Head: normocephalic, atraumatic. Neck: supple, trachea is midline, no swelling. Throat: Normal phonation. Eyes:, no erythema, no purulent discharge, no proptosis, no icterus. Heart: regular rate, regular rhythm, no significant murmur appreciated. Lungs: no apparent respiratory distress, Able to speak in full sentences. No wheezing, no rhonchi, no crackles. No stridors Clear to auscultation bilaterally. Abdomen: non tender to palpation, non distended, soft, no guarding, no rebound, + bowel sounds. Evaluation of the area of pain: Focal point tenderness to palpation over the left anterior mid clavicular ribcage area. No swelling appreciated. Neuro: Awake, Alert, oriented to name, self, situation, follows commands GCS=15. Speech is normal. Skin: no petechia, no purpura, no cyanosis, non-pale, not jaundice. Lower extremities: --no - Pitting edema no deformity, no focal swelling, no calf TTP. Makes eye contact. moves all four extremities. Face: no apparent facial droop. Ambulating in the ED independently. ED COURSE: DISCLAIMER: This medical document was created using an electronic medical record system with voice recognition software and computerized dictation system. Although this document has been carefully reviewed, there might still be some phonetic and typographical errors. Occasional wrong-word or "sound-alike" substitutions may have occurred due to the inherent limitations of voice recognition software. These areas are purely typographical due to imperfections of the software programs and do not reflect any compromise in the patient's medical care. Please read the chart carefully and recognize, using context, where these substitutions have occurred. Chief Complaint: Chest Pain Time Seen by MD: 21:41 Primary Care Provider: NICOLLE Reviewed Notes: Medications, Allergies Allergies: Coded Allergies: Codeine (Verified Allergy, Unknown, 09/10/19) Sulfa Drugs (Verified Allergy, Unknown, 09/10/19) Uncoded Allergies: CODINE (Allergy, Intermediate, 12/08/10) SULFA (Allergy, Intermediate, 12/08/10) TAPE (Allergy, Mild, 12/08/10) Home Meds Active Scripts Hydrocodone-Acetaminophen (Hydrocodone Bitartrate/AC 10-325 mg) 1 Tab Tab, 1 TAB PO Q6HP PRN, #20 TAB Prov:HARTINGRID T DO 07/27/21 Reported Medications Sumatriptan Succinate (Imitrex) 100 Mg Tab, PRN 12/08/10 Propranolol Hcl (Inderal) 20 Mg Tb, 10 BID 12/08/10 Pregabalin (Lyrica) 75 Mg Cap, BID 12/08/10 Alendronate Sodium (Fosamax) 70 Mg Tab, QWEEKLY 12/08/10 Information Source: Patient Mode of Arrival: Ambulatory Past Medical History PAST MEDICAL HISTORY: Anxiety, Arthritis, Depression Surgical History: Appendectomy, Hernia Repair, Hysterectomy [facility] History: No Pertinent [facility] History Family History Family History: No family hx of Heart binu, No family hx of HTN Family History (Other): Blood clots Social History Smoker: Non-Smoker Alcohol: Rarely Drugs: Denies Drug Use Lives In: Home Was a procedure done? Was a procedure done?: No CP Differential Dx Differential Diagnosis: N/A Differential Diagnosis: Other (Ddx include but not limitied to gastritis, musculoskeletal pain, radiculopathy, atypical chest pain, dissection, aneurysm, ACS, unstable angina, hiatal hernia, GERD, anxiety, costochondritis, PE, pneumothroax, neoplasm, cardiac ischemia, drug abuse, anemia.) X-Ray, Labs, Meds, VS Vital Signs Date Time Temp Pulse Resp B/P (MAP) Pulse Ox O2 Delivery O2 Flow Rate FiO2 02/24/25 01:28 72 18 140/84 (102) 98 02/24/25 00:07 67 02/23/25 22:19 61 02/23/25 20:01 72 02/23/25 19:49 98.3 5 18 150/86 100 98.3 Lab Test 02/23/25 21:06 02/23/25 20:08 Range/Units Troponin I High Sensitivity < 3 L 4 </=34 ng/L White Blood Count 4.7 4.4-10.8 10^3/uL Red Blood Count 4.26 4.0-5.20 10^6/uL Hemoglobin 13.0 12.2-16.2 g/dL Hematocrit 38.7 36.0-46.0 % Mean Corpuscular Volume 90.9 80.0-100.0 fL Mean Corpuscular Hemoglobin 30.6 28.0-32.0 pg Mean Corpuscular Hemoglobin Concent 33.7 32.0-36.0 g/dL Red Cell Distribution Width 14.0 11.8-14.3 % Platelet Count 200 140-450 10^3/uL Mean Platelet Volume 7.8 6.9-10.8 fL Neutrophils (%) (Auto) 42.1 37.0-80.0 % Lymphocytes (%) (Auto) 41.8 10.0-50.0 % Monocytes (%) (Auto) 12.5 H 0.0-12.0 % Eosinophils (%) (Auto) 2.4 0.0-7.0 % Basophils (%) (Auto) 1.2 0.0-2.0 % Neutrophils # (Auto) 2.0 1.6-8.6 10 ^3/uL Lymphocytes # (Auto) 1.9 0.4-5.4 10 ^3/uL Monocytes # (Auto) 0.6 0-1.3 10 ^3/uL Eosinophils # (Auto) 0.1 0-0.8 10 ^3/uL Basophils # (Auto) 0.1 0-0.2 10 ^3/uL Nucleated Red Blood Cells 0.1 % D-Dimer, Quantitative 1.36 H 0.0-0.49 mg/L FEU Sodium Level 145 136-145 mmol/L Potassium Level 4.1 3.5-5.1 mmol/L Chloride Level 107 98-107 mmol/L Carbon Dioxide Level 28 20-31 mmol/L Anion Gap 10 5-15 Blood Urea Nitrogen 29 H 9-23 mg/dL Creatinine 0.94 0.550-1.02 mg/dL Glomerular Filtration Rate Calc 64 >90 mL/min BUN/Creatinine Ratio 30.9 H 10.0-20.0 Serum Glucose 68 L 74-106 mg/dL Calcium Level 9.6 8.7-10.4 mg/dL B-Type Natriuretic Peptide 176.53 0-100 pg/mL [facility] [id number] [place] [address] Ph: [phone] DIAGNOSTIC IMAGING Diagnostic Imaging Report : [id number] Signed PATIENT: JOSÉ MANUEL CHRISTINA ACCT: [id number] UNIT: [id number] : 1950 LOC: ER ROOM / BED: / AGE / SEX: 74 / F ADM STATUS: REG ER SERVICE 29 ORDERING PHYSICIAN: DORA MADRID DO PROCEDURE(s): BLDVT - BiLat Lower DVT REASON: r/o dvt ORDER NUMBER(s): [id number], ACCESSION NUMBER(s): [id number] Bilateral lower extremity venous duplex Clinical History: r/o dvt Comparison: VAS VENOUS REFLUX INSUFFICIENCY BILAT on DOS: 12/21/24, US BILAT LOWER DVT on DOS: 11/22/24, VAS VENOUS REFLUX INSUFFICIENCY BILAT on DOS: 5, US BILAT LOWER DVT on DOS: 08/17/24, VAS VENOUS LOWER EXTREM BILAT (DVT) on DOS: 01/30/24 Technique: Duplex Doppler evaluation of the deep venous systems of both lower extremities from the common femoral veins to the popliteal veins including color Doppler and spectral/pulsed waveform analysis was performed. Findings: RIGHT SIDE: The common femoral vein demonstrates appropriate compressibility and waveform variability. There is compressibility/patency of the great saphenous vein at the proximal th igh. The femoral vein demonstrates appropriate compressibility and waveform variability. The deep femoral vein demonstrates appropriate compressibility and waveform variability. The popliteal vein demonstrates appropriate compressibility and waveform va riability. There is normal compressibility at the tibioperoneal trunk. LEFT SIDE: The common femoral vein demonstrates appropriate compressibility and waveform variability. There is compressibility/patency of the great saphenous vein at the proximal t high. The femoral vein demonstrates appropriate compressibility and waveform variability. The deep femoral vein demonstrates appropriate compressibility and waveform variability. The popliteal vein demonstrates appropriate compressibility and waveform v ariability. There is normal compressibility at the tibioperoneal trunk. Impression: 1. No right or left femoropopliteal venous thrombosis. ATED BY: MT PALOMO MD DICTATED DATE/TIME: 02/23/252215 SIGNED BY: MT PALOMO MD SIGNED DATE/TIME: 02/23/252215 CC: [place] [address] Ph: [phone] DIAGNOSTIC IMAGING Diagnostic Imaging Report : [id number] Signed PATIENT: JOSÉ MANUEL CHRISTINA ACCT: [id number] UNIT: [id number] : 1950 LOC: ER ROOM / BED: / AGE / SEX: 74 / F ADM STATUS: REG ER SERVICE 53 ORDERING PHYSICIAN: REBECA COVARRUBIAS MD PROCEDURE(s): CXR2 - CHEST TWO VIEWS ROUTINE REASON: CHEST PAIN ORDER NUMBER(s): [id number], ACCESSION NUMBER(s): [id number] CHEST RADIOGRAPH Indication: CHEST PAIN Technique: Frontal and lateral view of the chest was obtained Comparison: XY CHEST XRAY 1 VIEW on DOS: 11/22/24, CR CHEST 2 VIEW on DOS: 02/02/24, CHEST TWO VIEWS ROUTINE on DOS: 02/07/22, CXR2 on DOS: 02/07/22, EKG on DOS: 02/07/22 FINDINGS: Lines and Tubes: None Lungs: Clear Pleura: No effusion. No pneumothorax. Cardiomediastinal contours: Unremarkable Bones: Unremarkable IMPRESSION: 1. No evidence of acute disease. ATED BY: ALIREZA MONTOYA MD DICTATED DATE/TIME: 02/23/252016 SIGNED BY: ALIREZA MONTOYA MD SIGNED DATE/TIME: 02/23/252016 CC: Time of 1ST Reevaluation: 22:10 Reevaluation 1ST: Unchanged Time of 2ND Reevaluation: 00:18 (The case was discussed with the admitting team (HPI, physical exam, labs and diagnostic tests that were available at the time of disposition, ED course, treatment plan) on the phone. They agreed to admit the patient to their service and assume care of this patient from this point nahun campbell. MARIELOS Souza. ) Patient Education/Counseling: Diagnosis, Treatment Family Education/Counseling: No Family Present Comments MDM: patient presented with the above HPI.-cardiac-----workup was initiated. patient was found with the above mentioned diagnosis. the following medications were ordered: please refer to order lists of meds and tests obtained by myself Dr. Madrid. Patient ED course and VS have been stabilized. Patient has been reassessed in the ED and remained in a stable condition. Pertinent incidental findings were discussed with the patient and/or family. Patient/family voices understanding and is agreeable with plan. Patient has been observed in the ED adequate length of time to insure improvement/stability. Escalation of care considered: Consideration of escalation to observation or admission CT angiogram of the extremity was ordered in error. It was supposed to be CTA angiogram of the chest to rule out PE. The hospitalist was notified who will follow up on it. Patient was ADMITTED to the medicine team for further evaluation and treatment of their presentation. Later I was informed that the patient left against medical advice All the reports of any imaging studies that were ordered by myself were reviewed by myself. SEPSIS Sepsis Screen Date sepsis recognized/suspect: Feb 23, 2025 Time Sepsis recognized/suspect: 1951 Recent Procedure: No On Antibiotic Therapy: No Respiratory Rate >20: No Heart Rate >90: No Temp<36 C (96.8 F) or >38.3 C: No SBP <90 or MAP <65 mmHG: No New Acute Mental Status Change: No Is the patient on CPAP, BIPAP,: No Physician Orders Chest Two Views Routine (02/23/25 19:54) Ct Angio Lower Extremity (02/23/25 21:30) Bilat Lower Dvt (02/23/25 21:30) Discharge (02/24/25 01:27) Vital Signs Date Time Temp Pulse Resp B/P (MAP) Pulse Ox O2 Delivery O2 Flow Rate FiO2 02/24/25 01:28 72 18 140/84 (102) 98 02/24/25 00:07 67 02/23/25 22:19 61 02/23/25 20:01 72 02/23/25 19:49 98.3 5 18 150/86 100 98.3 Laboratory Tests Test 02/23/25 20:08 White Blood Count 4.7 10^3/uL (4.4-10.8) Departure 1 Departure Time of Disposition: 00:00 Impression: Primary Impression: Chest pain Disposition: ADMITTED INPATIENT Admit to: Tele Condition: Guarded Additional Instructions: [place] [address] Ph: [phone] DIAGNOSTIC IMAGING Diagnostic Imaging Report : [id number] Signed PATIENT: JOSÉ MANUEL CHRISTINA ACCT: [id number] UNIT: [id number] : 1950 LOC: ER ROOM / BED: / AGE / SEX: 74 / F ADM STATUS: REG ER SERVICE 29 ORDERING PHYSICIAN: DORA MADRID DO PROCEDURE(s): BLDVT - BiLat Lower DVT REASON: r/o dvt ORDER NUMBER(s): [id number], ACCESSION NUMBER(s): [id number] Bilateral lower extremity venous duplex Clinical History: r/o dvt Comparison: VAS VENOUS REFLUX INSUFFICIENCY BILAT on DOS: 12/21/24, US BILAT LOWER DVT on DOS: 11/22/24, VAS VENOUS REFLUX INSUFFICIENCY BILAT on DOS: 09/17/24, US BILAT LOWER DVT on DOS: 08/17/24, VAS VENOUS LOWER EXTREM BILAT (DVT) on DOS: 01/30/24 Technique: Duplex Doppler evaluation of the deep venous systems of both lower extremities from the common femoral veins to the popliteal veins including color Doppler and spectral/pulsed waveform analysis was performed. Findings: RIGHT SIDE: The common femoral vein demonstrates appropriate compressibility and waveform variability. There is compressibility/patency of the great saphenous vein at the proximal thigh. The femoral vein demonstrates appropriate compressibility and waveform variability. The deep femoral vein demonstrates appropriate compressibility and waveform variability. The popliteal vein demonstrates appropriate compressibility and waveform variability. There is normal compressibility at the tibioperoneal trunk. LEFT SIDE: The common femoral vein demonstrates appropriate compressibility and waveform variability. There is compressibility/patency of the great saphenous vein at the proximal thigh. The femoral vein demonstrates appropriate compressibility and waveform variability. The deep femoral vein demonstrates appropriate compressibility and waveform variability. The popliteal vein demonstrates appropriate compressibility and waveform variabi lity. There is normal compressibility at the tibioperoneal trunk. Impression: 1. No right or left femoropopliteal venous thrombosis. ATED BY: MT PALOMO MD DICTATED DATE/TIME: 02/23/252215 SIGNED BY: MT PALOMO MD SIGNED DATE/TIME: 02/23/252215 CC: Discharged With: Self Critical Care Note Critical Care Time?: No Heart Score Heart Score: Heart Score Response (Comments) Value History Slightly Suspicious 0 EKG Normal 0 Age >65 2 Risk Factors No known risk factors 0 Troponin Normal limit 0 Total 2 I personally scribed for DORA MADRID DO ([email or web address]) on 02/23/25 at 21:45. Electronically submitted by Alexx Lucero ([facility] [place] DORA MADRID DO Feb 23, 2025 21:45
[2025-02-23] MEDS: IOHEXOL 350 MG/ML 100ML IJ ONE (22:00)
--- NOTE | 2025-02-23 22:18 | DVH ---
Bilateral lower extremity venous duplex Clinical History: r/o dvt Comparison: VAS VENOUS REFLUX INSUFFICIENCY BILAT on DOS: 12/21/24, US BILAT LOWER DVT on DOS: 11/22/24 , VAS VENOUS REFLUX INSUFFICIENCY BILAT on DOS: 09/17/24, US BILAT LOWER DVT on DOS: 08/17/24, VAS VENO US LOWER EXTREM BILAT (DVT) on DOS: 01/30/24 Technique: Duplex Doppler evaluation of the deep venous systems of both lower extremities from the common femora l veins to the popliteal veins including color Doppler and spectral/pulsed waveform analysis was perf ormed. Findings: RIGHT SIDE: The common femoral vein demonstrates appropriate compressibility and waveform variability. There is compressibility/patency of the great saphenous vein at the proximal thigh. The femoral vein demonstrates appropriate compressibility and waveform variability. The deep femoral vein demonstrates appropriate compressibility and waveform variability. The popliteal vein demonstrates appropriate compressibility and waveform variability. There is normal compressibility at the tibioperoneal trunk. LEFT SIDE: The common femoral vein demonstrates appropriate compressibility and waveform variability. There is compressibility/patency of the great saphenous vein at the proximal thigh. The femoral vein demonstrates appropriate compressibility and waveform variability. The deep femoral vein demonstrates appropriate compressibility and waveform variability. The popliteal vein demonstrates appropriate compressibility and waveform variability. There is normal compressibility at the tibioperoneal trunk. Impression: 1. No right or left femoropopliteal venous thrombosis.
--- NOTE | 2025-02-23 22:21 | ECG ---
[facility] Test Date: 2025-02-23 Test Time: 22:19:15 Pat Name: JOSÉ MANUEL CHRISTINA Department: Room: Gender: F Mycologist: ALESSANDRO : 1950 Requested By: REBECA COVARRUBIAS Order Number: [id number] Reading MD: Measurements Intervals [place] Rate: 61 P: 53 AR: 146 QRS: 69 QRSD: 101 T: 53 QT: 425 QTc: 428 Interpretive Statements Sinus rhythm Borderline T abnormalities, anterior leads Please click the below link to view image of tracing.
--- NOTE | 2025-02-24 00:11 | DVH ---
Procedure: CT CT ANGIO LOWER EXTREMITY Reason for study/Clinical History: cp Comparison Study: None CTA LOWER EXTREMITY RUNOFF WITH CONTRAST DATED 02/23/2025 10:57 PM Radiation Dose Information: CT Dose: CTDI volume is 8.41 mGy. Dose-length product is 1075.36 mGy*cm TECHNIQUE: CT acquisition of the pelvis and lower extremities with contrast in angiographic phase. Mu ltiplanar reformats provided. 3D postprocessing images were performed on a dedicated workstation and images were reviewed and inter preted for reporting. FINDINGS: No appreciable atherosclerosis. No evidence of dissection, stenosis, aneurysm or vascular malformatio n. 3-vessel runoffs are symmetric, patent to the level of the distal tibia with posterior tibial garth ry opacification past the ankle. No acute findings of the pelvic contents or lower extremities. Nonspecific subcutaneous stranding in the lower legs. Mildly prominent varicosity in the left lower extremity. No acute osseous abnormality. Lumbosacral postsurgical changes. IMPRESSION: 1. Unremarkable lower extremity runoff. 2. No significant incidental finding. All CT scans at this medical facility are performed using dose modulation techniques as appropriate t o a performed exam including the following: Automated exposure control was utilized; adjustment of th e MA and/or KV according to patient size; and use of iterative reconstruction technique.
--- NOTE | 2025-02-24 01:04 | DVHINCON2 ---
CINDY CARVAJAL SLITTING MACHINE OPERATOR 02/24/25 0104: Date of service: Feb 24, [address] Hodge Reason for Consultation Medical Management History of Present Illness 74-year-old female presents with complaints of left-sided chest pain. Patient states the pain is located under her left breast and states it is similar to the pain that she had before on the right breast before she had a lumpectomy. Patient did endorse family history of blood clots. At this time the patient is also complaining of swelling to bilateral legs. States that her legs got wrapped around with a wire that was used to tie her dogs causing severe pain by the calves about 8 months ago. Endorses calves had felt firm since that incident. During the emergency department evaluation CBC is unremarkable. CMP is unremarkable. Troponins negative x2. ECG NSR. Chest x-ray has no acute cardiopulmonary disease. Bilateral lower extremity venous Dopplers are negative for DVTs. CT angio of bilateral lower extremities with runoff was ordered erroneously by the emergency department which is negative for any acute findings. However due to this error, radiology is unable to complete a CT angio of the chest to rule out a PE for at least another 24 hours. At this time the patient is denying fevers, chills, shortness of breath, shortness of breath with exertion, wheezing, dizziness, nausea, vomiting, palpitations, abdominal pain. Family History: Alzheimer's disease G8 FATHER Malignant neoplasm of breast G8 MOTHER Allergies: Coded Allergies: Codeine (Verified Allergy, Unknown, 09/10/19) Sulfa Drugs (Verified Allergy, Unknown, 09/10/19) Uncoded Allergies: CODINE (Allergy, Intermediate, 12/08/10) SULFA (Allergy, Intermediate, 12/08/10) TAPE (Allergy, Mild, 12/08/10) Home Meds Active Scripts Hydrocodone-Acetaminophen (Hydrocodone Bitartrate/AC 10-325 mg) 1 Tab Tab, 1 TAB PO Q6HP PRN, #20 TAB Prov:INGRID HART DO 07/27/21 Reported Medications Sumatriptan Succinate (Imitrex) 100 Mg Tab, PRN 12/08/10 Propranolol Hcl (Inderal) 20 Mg Tb, 10 BID 12/08/10 Pregabalin (Lyrica) 75 Mg Cap, BID 12/08/10 Alendronate Sodium (Fosamax) 70 Mg Tab, QWEEKLY 12/08/10 Review of Systems Ten systems reviewed and negative except as per HPI Vital Signs Vital Signs Date Time Temp Pulse Resp B/P (MAP) Pulse Ox O2 Delivery O2 Flow Rate FiO2 02/24/25 00:07 67 02/23/25 19:49 98.3 18 150/86 100 98.3 Physical Exam GENERAL: Patient appearing stated age, in no acute distress. HEENT: Pupils equal and reactive to light and accommodation. Extraocular muscles intact. Mucous membranes moist. Conjunctivae pink. Anicteric sclerae. LUNGS: Bilateral air entry. No wheezes, rhonchi or rales. HEART: Regular rate and rhythm. Normal S1 and S2. ABDOMEN: BS normoactive, soft, nontender, and nondistended. No CVA tenderness. EXTREMITIES: No clubbing, cyanosis, edema. No calf tenderness. Pedal pulses 2+.?NEUROLOGICAL: The patient is alert and oriented times 3. CN II-XII intact. No focal deficits on gross sensory or motor examination. Labs/Diagnostic Data Labs Test 02/23/25 21:06 02/23/25 20:08 Range/Units Troponin I High Sensitivity < 3 L </=34 ng/L White Blood Count 4.7 4.4-10.8 10^3/uL Red Blood Count 4.26 4.0-5.20 10^6/uL Hemoglobin 13.0 12.2-16.2 g/dL Hematocrit 38.7 36.0-46.0 % Mean Corpuscular Volume 90.9 80.0-100.0 fL Mean Corpuscular Hemoglobin 30.6 28.0-32.0 pg Mean Corpuscular Hemoglobin Concent 33.7 32.0-36.0 g/dL Red Cell Distribution Width 14.0 11.8-14.3 % Platelet Count 200 140-450 10^3/uL Mean Platelet Volume 7.8 6.9-10.8 fL Neutrophils (%) (Auto) 42.1 37.0-80.0 % Lymphocytes (%) (Auto) 41.8 10.0-50.0 % Monocytes (%) (Auto) 12.5 H 0.0-12.0 % Eosinophils (%) (Auto) 2.4 0.0-7.0 % Basophils (%) (Auto) 1.2 0.0-2.0 % Neutrophils # (Auto) 2.0 1.6-8.6 10 ^3/uL Lymphocytes # (Auto) 1.9 0.4-5.4 10 ^3/uL Monocytes # (Auto) 0.6 0-1.3 10 ^3/uL Eosinophils # (Auto) 0.1 0-0.8 10 ^3/uL Basophils # (Auto) 0.1 0-0.2 10 ^3/uL Nucleated Red Blood Cells 0.1 % D-Dimer, Quantitative 1.36 H 0.0-0.49 mg/L FEU Sodium Level 145 136-145 mmol/L Potassium Level 4.1 3.5-5.1 mmol/L Chloride Level 107 98-107 mmol/L Carbon Dioxide Level 28 20-31 mmol/L Anion Gap 10 5-15 Blood Urea Nitrogen 29 H 9-23 mg/dL Creatinine 0.94 0.550-1.02 mg/dL Glomerular Filtration Rate Calc 64 >90 mL/min BUN/Creatinine Ratio 30.9 H 10.0-20.0 Serum Glucose 68 L 74-106 mg/dL Calcium Level 9.6 8.7-10.4 mg/dL B-Type Natriuretic Peptide 176.53 0-100 pg/mL Assessment Elevated D dimmer Chest pain This patient's charge was reviewed in its entirety, including lab work, imaging, physical assessment of the patient. CBC is unremarkable. CMP is unremarkable. troponin were negative times two. D dimer is found to be elevated 1.36. Chest x- rays negative for acute cardiopulmonary disease, bilateral lower extremity venous Doppler negative for DVT. CTA of bilateral lower extremities was ordered erroneously per the emergency department. CTA chest ordered however radiology will not be able to complete this test for 24 hours due to the patient just receiving contrast. Patient vital signs at this time afebrile 98.3, BP 140/84, HR 72, oxygen saturation 98% on room air. RR 18 BPM. Patient has no visible sig ns of acute respiratory distress or chest pain. At the time of my evaluation, the patient is ambulating throughout the emergency department lobby with steady gate and without any signs of respiratory / cardiac distress. Plan/Recommendation I discussed the lab findings with the patient and explained the indication of an elevated D dimmer. Also explained the need for additional testing to rule out pulmonary embolism, VQ scan vs CTA chest. I also explained that it would be at least 24 hours before the patient could receive contrast for a CT again. At this time, I strongly recommend inpatient admission for VQ scan in the morning. However, the patient states she does not want to be admitted to the hospital. Given that the patient is hemodynamically stable, HR 72bpm, oxygen saturation is 98% on room air, and describes pain to left chest as pain under her left breast similar to the pain she was experiencing before she got a lumpectomy of the right breast. This time patient is also endorsing chest pain has resolved. The patient is discharged home and will follow up on outpatient basis. O vocational case manager, Cher has been consulted to establish home safety evaluation for the morning and outpatient follow up at [facility] urgent care for CT Angio of the chest. We also plan for outpatient cardiology follow up. This patient was provided with strict ER precautions, including, but not limited to dizziness, syncope, shortness of breath, chest pain, palpitations, nausea, vomiting. If any of these occur, return to the nearest emergency department for further evaluation and treatment. Patient was also advised in the risk of possible pulmonary embolism which can result in . Plan discussed with: Patient RICH ARAYA MD 02/24/25 1520: Family History: Alzheimer's disease G8 FATHER Malignant neoplasm of breast G8 MOTHER Allergies: Coded Allergies: Codeine (Verified Allergy, Unknown, 09/10/19) Sulfa Drugs (Verified Allergy, Unknown, 09/10/19) Uncoded Allergies: CODINE (Allergy, Intermediate, 12/08/10) SULFA (Allergy, Intermediate, 12/08/10) TAPE (Allergy, Mild, 12/08/10) Home Meds Active Scripts Hydrocodone-Acetaminophen (Hydrocodone Bitartrate/AC 10-325 mg) 1 Tab Tab, 1 TAB PO Q6HP PRN, #20 TAB Prov:INGRID HART DO 07/27/21 Reported Medications Sumatriptan Succinate (Imitrex) 100 Mg Tab, PRN 12/08/10 Propranolol Hcl (Inderal) 20 Mg Tb, 10 BID 12/08/10 Pregabalin (Lyrica) 75 Mg Cap, BID 12/08/10 Alendronate Sodium (Fosamax) 70 Mg Tab, QWEEKLY 12/08/10 Additional Comments Additional Comments Additional Comments Patient's chart is reviewed and discussed with the nurse practitioner. Patient is seen evaluated by SLITTING MACHINE OPERATOR in ER. I agree with his evaluation, documentation, assessment and care plan as outlined. CINDY CARVAJAL NP Feb 24, 2025 01:04 RICH ARAYA MD Feb 24, 2025 15:20
[2025-02-24 01:28] VITALS: BP 140/84; PULSE 72; RESP 18; O2SAT 98
--- NOTE | 2025-02-24 13:22 | ECG ---
[facility] Test Date: 2025-02-24 Test Time: 00:07:35 Pat Name: JOSÉ MANUEL CHRISTINA Department: Room: Gender: F Steel Division Supervisor: ALESSANDRO : 1950 Requested By: REBECA COVARRUBIAS Order Number: [id number] Reading MD: Measurements Intervals [place] Rate: 67 P: 37 MA: 154 QRS: 68 QRSD: 97 T: 36 QT: 406 QTc: 429 Interpretive Statements Sinus rhythm Borderline T abnormalities, anterior leads Please click the below link to view image of tracing.
== END 2025-02-24 01:33 | disposition home or self-care (01) ==
LOC: ER 19:48
DX: R07.89 Other chest pain (principal); F41.9 Anxiety disorder, unspecified; F32.A Depression, unspecified; M19.90 Unspecified osteoarthritis, unspecified site; Z86.718 Personal history of other venous thrombosis and embolism; Z90.49 Acquired absence of other specified parts of digestive tract; Z90.710 Acquired absence of both cervix and uterus; Z91.048 Other nonmedicinal substance allergy status; Z98.1 Arthrodesis status; Z98.890 Other specified postprocedural states; Z88.2 Allergy status to sulfonamides; Z88.5 Allergy status to narcotic agent
CPT/HCPCS: 36415; 71046; 73706; 80048; 83880; 84484; 85025; 85379; 93005; 93970; 99284; Q9967

== ENCOUNTER 2025-03-03 14:05 | Inpatient (IN) | payer OTHER ==
[~2025-03-03] VITALS: Ht 167.6 cm; Wt 62.5 kg
--- NOTE | 2025-03-03 14:17 | ECG ---
[facility] Test Date: 2025-03-03 Test Time: 14:16:31 Pat Name: JOSÉ MANUEL CHRISTINA Department: Room: 0250T Gender: F Partition Notcher: DANIELE : 1950 Requested By: BENITO FERNANDEZ Order Number: [id number] Reading MD: Jose Burr Measurements Intervals [place] Rate: 78 P: 44 UT: 151 QRS: 75 QRSD: 95 T: 70 QT: 397 QTc: 453 Interpretive Statements Sinus rhythm Anteroseptal infarct, age indeterminate Electronically Signed On 03-07-2025 10:54:07 PST by Jose Burr Please click the below link to view image of tracing.
--- NOTE | 2025-03-03 14:41 | ED.PDOC ---
HPI Comments 74 y/o F, with PMHx of anxiety, arthritis, and depression presents to the ED for CC of chest pain. Patient states, she has been experiencing left-sided chest pain that radiates to her left-arm sudden onset, 1200 today (03/03/25). Patient describes, pain to be "dull" in nature and to be a 4/10 on the pain scale. Patient denies palpitations, shortness of breath, headache, or dizziness. No other symptoms or modifying factors are present at this time. Chief Complaint: Chest Pain Time Seen by MD: 14:30 Primary Care Provider: NICOLLE Reviewed Notes: Nurses Notes, Medications, Allergies Allergies: Coded Allergies: Codeine (Verified Allergy, Unknown, 09/10/19) Sulfa Drugs (Verified Allergy, Unknown, 09/10/19) Uncoded Allergies: CODINE (Allergy, Intermediate, 12/08/10) SULFA (Allergy, Intermediate, 12/08/10) TAPE (Allergy, Mild, 12/08/10) Home Meds Active Scripts Hydrocodone-Acetaminophen (Hydrocodone Bitartrate/AC 10-325 mg) 1 Tab Tab, 1 TAB PO Q6HP PRN, #20 TAB Prov:INGRID HART DO 07/27/21 Reported Medications Sumatriptan Succinate (Imitrex) 100 Mg Tab, PRN 12/08/10 Propranolol Hcl (Inderal) 20 Mg Tb, 10 BID 12/08/10 Pregabalin (Lyrica) 75 Mg Cap, BID 12/08/10 Alendronate Sodium (Fosamax) 70 Mg Tab, QWEEKLY 12/08/10 Information Source: Patient Mode of Arrival: Ambulatory Severity: Moderate Timing: Hours Duration: Since onset Prehospital treatment: None Location: Chest (L) Radiation: Arm (L) Quality: Other (dull) Onset: At Rest Cardiac Risk Factors: None PE Risk Factors: None History of: None Modifying Factors: Nothing Associated Signs and Symptoms: None Past Medical History PAST MEDICAL HISTORY: Anxiety, Arthritis, Depression Surgical History: Appendectomy, Hernia Repair, Hysterectomy COMPANY DANCER History: No Pertinent COMPANY DANCER History Family History Family History: No family hx of Heart binu, No family hx of HTN Family History (Other): Blood clots Social History Smoker: Non-Smoker Alcohol: Rarely Drugs: Denies Drug Use Lives In: Home Constitutional: denies: chills, diaphoresis, fatigue, fever, malaise, sweats, weakness, others EENTM: denies: blurred vision, double vision, ear bleeding, ear discharge, ear drainage, ear pain, ear ringing, eye pain, eye redness, hearing loss, mouth pain, mouth swelling, nasal discharge, nose bleeding, nose congestion, nose pain, photophobia, tearing, throat pain, throat swelling, voice changes, others Respiratory: denies: cough, hemoptysis, orthopnea, SOB at rest, shortness of breath, SOB with excertion, stridor, wheezing, others Cardiovascular: reports: chest pain; denies: dizzy spells, diaphoresis, Dyspnea on exertion, edema, irregular heart beat, left arm pain, lightheadedness, palpitations, PND, syncope, others Gastrointestinal: denies: abdomen distended, abdominal pain, blood streaked bowels, constipated, diarrhea, dysphagia, difficulty swallowing, hematemesis, melena, nausea, poor appetite, poor fluid intake, rectal bleeding, rectal pain, vomiting, others Genitourinary: denies: abnormal vagina bleeding, burning, dyspareunia, dysuria, flank pain, frequency, hematuria, incontinence, pain, , vagina discharge, urgency, others Neurological: denies: dizziness, fainting, headache, left sided numbness, left sided weakness, numbness, paresthesia, pre-existing deficit, right sided numbness, right sided weakness, seizure, speech problems, tingling, tremors, weakness, others Musculoskeletal: denies: back pain, gout, joint pain, joint swelling, muscle pain, muscle stiffness, neck pain, others Integumetry: denies: bruises, change in color, change in hair/nails, dryness, laceration, lesions, lumps, rash, wounds, others Allergic/Immunocompromised: denies: Difficulty Healing, Frequent Infections, Hives, Itching, others Hematologic/Lymphatic: denies: anemia, blood clots, easy bleeding, easy bruising, swollen glands, others Endocrine: denies: excessive hunger, excessive sweating, excessive thirst, excessive urination, flushing, intolerance to cold, intolerance to heat, unexplained weight gain, unexplained weight loss, others Psychiatric: denies: anxiety, bipolar disorder, depression, hopeless, panic disorder, schizophrenia, sleepless, suicidal, others All Other Systems: Reviewed and Negative Physical Exam General Appearance: Moderate Distress HEENT: Normal ENT Inspection, Pharynx Normal, TMs Normal Neck: Full Range of Motion, Non-Tender, Normal, Normal Inspection Respiratory: Chest Non-Tender, Lungs Clear, No Accessory Muscle Use, No Respiratory Distress, Normal Breath Sounds Cardiovascular: No Edema, No JVD, No Murmur, No Gallop, Normal Peripheral Pulses, Regular Rate/Rhythm Breast Exam: Deferred Gastrointestinal: No Organomegaly, Non Tender, No Pulsatile Mass, Normal Bowel Sounds, Soft Genitalia: Deferred Pelvic: Deferred Rectal: Deferred Extremities: No calf tenderness, Normal capillary refill, Normal inspection, Normal range of motion, Non-tender, No pedal edema Musculoskeletal : Apperance: Normal Neurologic: Alert, wireless retail manager II-XII nml as Tested, No Motor Deficits, Normal Affect, Normal Mood, No Sensory Deficits Cerebellar Function: Normal Reflexes: Normal Skin: Dry, Normal Color, Warm Lymphatic: No Adenopathy EKG EKG : Pulse Rate (adult): 78 Carter: Normal Cardiac Rhythm: NSR Block: None ST: Nonsp Was a procedure done? Was a procedure done?: No CP Differential Dx Differential Diagnosis: Angina, Anxiety / Panic Attack, NV Differential Diagnosis: Chest Wall Pain, Costochondritis, Esophageal reflux/spasm, Gastritis, Pulmonary Embolus X-Ray, Labs, Meds, VS Vital Signs Date Time Temp Pulse Resp B/P (MAP) Pulse Ox O2 Delivery O2 Flow Rate FiO2 03/03/25 16:16 78 03/03/25 15:05 71 03/03/25 14:16 78 03/03/25 14:13 97.7 100 20 159/92 100 97.7 Lab Test 03/03/25 15:24 03/03/25 14:33 Range/Units Troponin I High Sensitivity < 3 L < 3 L </=34 ng/L White Blood Count 5.7 4.4-10.8 10^3/uL Red Blood Count 4.37 4.0-5.20 10^6/uL Hemoglobin 13.5 12.2-16.2 g/dL Hematocrit 39.7 36.0-46.0 % Mean Corpuscular Volume 90.9 80.0-100.0 fL Mean Corpuscular Hemoglobin 31.0 28.0-32.0 pg Mean Corpuscular Hemoglobin Concent 34.1 32.0-36.0 g/dL Red Cell Distribution Width 13.9 11.8-14.3 % Platelet Count 215 140-450 10^3/uL Mean Platelet Volume 7.7 6.9-10.8 fL Neutrophils (%) (Auto) 63.8 37.0-80.0 % Lymphocytes (%) (Auto) 23.6 10.0-50.0 % Monocytes (%) (Auto) 9.4 0.0-12.0 % Eosinophils (%) (Auto) 2.3 0.0-7.0 % Basophils (%) (Auto) 0.9 0.0-2.0 % Neutrophils # (Auto) 3.6 1.6-8.6 10 ^3/uL Lymphocytes # (Auto) 1.3 0.4-5.4 10 ^3/uL Monocytes # (Auto) 0.5 0-1.3 10 ^3/uL Eosinophils # (Auto) 0.1 0-0.8 10 ^3/uL Basophils # (Auto) 0.1 0-0.2 10 ^3/uL Nucleated Red Blood Cells 0.0 % Sodium Level 145 136-145 mmol/L Potassium Level 3.6 3.5-5.1 mmol/L Chloride Level 107 98-107 mmol/L Carbon Dioxide Level 26 20-31 mmol/L Anion Gap 12 5-15 Blood Urea Nitrogen 20 9-23 mg/dL Creatinine 0.91 0.550-1.02 mg/dL Glomerular Filtration Rate Calc 66 >90 mL/min BUN/Creatinine Ratio 22.0 H 10.0-20.0 Serum Glucose 82 74-106 mg/dL Calcium Level 9.3 8.7-10.4 mg/dL Total Bilirubin 0.5 0.2-1.0 mg/dL Aspartate Amino Transferase (AST) 33 13-40 U/L Alanine Aminotransferase (ALT) 24 7-40 U/L Alkaline Phosphatase 86 46-116 U/L B-Type Natriuretic Peptide 96.98 0-100 pg/mL Total Protein 6.9 5.7-8.2 g/dL Albumin 4.4 3.2-4.8 g/dL CXR: IMPRESSION: Perihilar airspace opacities and mild pulmonary vascular congestion. The patient is being given Lasix 40 mg IV push The CBC and chemistry panel is within normal limits The troponin level x2 is within normal limits The patient will be admitted at this time Images Reviewed?: Images reviewed and evaluated by me Time of 1ST Reevaluation: 15:00 Reevaluation 1ST: Unchanged Patient Education/Counseling: Diagnosis, Treatment Family Education/Counseling: No Family Present SEPSIS Sepsis Screen Date sepsis recognized/suspect: Mar 03, 2025 Time Sepsis recognized/suspect: 1413 Recent Procedure: No On Antibiotic Therapy: No Respiratory Rate >20: No Heart Rate >90: Yes Temp<36 C (96.8 F) or >38.3 C: No SBP <90 or MAP <65 mmHG: No New Acute Mental Status Change: No Is the patient on CPAP, BIPAP,: No Physician Orders Chest Portable (03/03/25 14:11) Urinalysis (03/03/25 14:11) Electrocardigram (03/03/25 17:11) Heplock Iv (03/03/25 ) Machinist Supervisor Outside (03/03/25 14:26) Blood Pressure (03/03/25 14:26) Pulse Oximetry (03/03/25 14:26) Vital Signs Date Time Temp Pulse Resp B/P (MAP) Pulse Ox O2 Delivery O2 Flow Rate FiO2 03/03/25 16:16 78 03/03/25 15:05 71 03/03/25 14:16 78 03/03/25 14:13 97.7 100 20 159/92 100 97.7 Laboratory Tests Test 03/03/25 14:33 White Blood Count 5.7 10^3/uL (4.4-10.8) Departure 1 Departure Time of Disposition: 18:47 Impression: Primary Impression: Acute on chronic diastolic heart failure Additional Impression: Acute myocardial ischemia Disposition: 09 ADMITTED INPATIENT Admit to: [facility] Condition: Fair Critical Care Note Critical Care Time?: Yes (45 min-critical care time only) Stability Stability form required: Yes Unstable for transfer: Telemetry monitoring (Telemetry monitoring required), ED Physician Assesment (Clinical assesment) Heart Score Heart Score: Heart Score Response (Comments) Value History Moderate Suspicious 1 EKG Normal 0 Age >65 2 Risk Factors 1 or 2 risk factors 1 Troponin N/A 0 Total 4 I personally scribed for LUISITO MORFIN MD ([email or web address]) on 03/03/25 at 14:41. Electronically submitted by Olamied Sweeney ([email or web address]). I personally scribed for LUISITO MORFIN MD ([email or web address]) on 03/03/25 at 15:19. Electronically submitted by Olamide Sweeney ([email or web address]). LUISITO MORFIN MD Mar 03, 2025 14:41
[2025-03-03 15:06] LABS: Hematocrit 39.7 % (36.0-46.0); Hemoglobin 13.5 g/dL (12.2-16.2); Mean Corpuscular Hemoglobin 31.0 pg (28.0-32.0); Mean Corpuscular Volume 90.9 fL (80.0-100.0); Nucleated Red Blood Cells % 0.0 %
--- NOTE | 2025-03-03 15:15 | DVH ---
CHEST RADIOGRAPH Indication: chest pain Technique: XY CHEST PORTABLE Comparison: None FINDINGS: The cardiac silhouette is unremarkable. The lungs demonstrate perihilar airspace opacity. The pulmonary vasculature is mildly. There is no pleural effusion. There is no pneumothorax. Cervical fusion hardware. IMPRESSION: Perihilar airspace opacities and mild pulmonary vascular congestion.
[2025-03-03 15:30] LABS: Alanine Aminotransferase 24 U/L (7-40); Albumin 4.4 g/dL (3.2-4.8); Alkaline Phosphatase 86 U/L (46-116); Anion Gap 12 (5-15); BUN/Creatinine Ratio 22.0 (10.0-20.0); Bilirubin, Total 0.5 mg/dL (0.2-1.0); Blood Urea Nitrogen 20 mg/dL (9-23); Calcium 9.3 mg/dL (8.7-10.4); Carbon Dioxide 26 mmol/L (20-31); Chloride 107 mmol/L (98-107); Glucose 82 mg/dL (74-106); Potassium 3.6 mmol/L (3.5-5.1); Sodium 145 mmol/L (136-145); Total Protein 6.9 g/dL (5.7-8.2)
--- NOTE | 2025-03-03 15:40 | ECG ---
[facility] Test Date: 2025-03-03 Test Time: 15:02:56 Pat Name: JOSÉ MANUEL CHRISTINA Department: [facility] ED Room: 0250T Gender: F Telegraph Operator: GERRY : 1950 Requested By: BENITO FERNANDEZ Order Number: [id number] Reading MD: Jose Burr Measurements Intervals [place] Rate: 71 P: 0 [place]: 61 QRS: -23 QRSD: 89 T: 34 QT: 410 QTc: 446 Interpretive Statements Sinus rhythm Short [place] interval Left atrial enlargement Borderline left axis deviation Anterior infarct, age indeterminate Electronically Signed On 03-07-2025 10:54:17 PST by Jose Burr Please click the below link to view image of tracing.
[2025-03-03] MEDS ORDERED: NITROGLYCERIN 0.4 MG SL TAB SL PRN (17:15)
[2025-03-03] MEDS ORDERED: MORPHINE SULFATE INJ 2 MG/ml SYRG IV PRN (17:15)
[2025-03-03 18:25] VITALS: PULSE 62; RESP 17; O2SAT 94
[2025-03-03] MEDS ORDERED: HYDROcodone-ACET 5/325MG TAB PO PRN (19:15)
[2025-03-03] MEDS ORDERED: hydrALAZINE HCL 20 MG/ML VL IV PRN (19:15)
[2025-03-03] MEDS ORDERED: ONDANSETRON HCL 4 MG/2 ML VIAL IV PRN (19:15)
[2025-03-03 20:42] VITALS: PULSE 53
[2025-03-03 21:00] VITALS: BP 149/79; PULSE 54; RESP 18; TEMP 98.6; O2SAT 99
[2025-03-03 21:17] VITALS: BP 149/79; PULSE 54; RESP 18; TEMP 98.6; O2SAT 99
[2025-03-03] MEDS: FUROSEMIDE 40 MG/4 ML VIAL IV ONE (22:05)
[2025-03-03] MEDS: ATORVASTATIN 20 MG TAB PO SCH (22:05)
[2025-03-04] VITALS (7 sets, daily range): BP systolic 102–132; BP diastolic 62–78; PULSE 50–76; RESP 16–18; TEMP 36.7; O2SAT 97–99
[2025-03-04] MEDS: ACETAMINOPHEN 325 MG TAB PO PRN (01:13)
--- NOTE | 2025-03-04 01:33 | DVHHP2 ---
Admitting Diagnosis: Chest pain r/o ACS History of Present Illness History Source: Patient Exam Limitations: No limitations HPI Mrs. Brianna Paul is a 74 year old female, with a history of anxiety, arthritis, and depression who presents with a chief complaint of chest pain. Patient states, she has been experiencing left-sided chest pain that radiates to her left-arm and neck sudden onset, 1200 yesterday (03/03/25). Patient describes, pain to be "dull" in nature and to be a 4/10 on the pain scale. Patient denies palpitations, shortness of breath, headache, or dizziness. No other symptoms or modifying factors are present at this time. Patient admitted for further evaluation. Home Meds Active Scripts Hydrocodone-Acetaminophen (Hydrocodone Bitartrate/AC 10-325 mg) 1 Tab Tab, 1 TAB PO Q6HP PRN, #20 TAB Prov:HARTINGRID Kleber DO 07/27/21 Reported Medications Sumatriptan Succinate (Imitrex) 100 Mg Tab, PRN 12/08/10 Propranolol Hcl (Inderal) 20 Mg Tb, 10 BID 12/08/10 Pregabalin (Lyrica) 75 Mg Cap, BID 12/08/10 Alendronate Sodium (Fosamax) 70 Mg Tab, QWEEKLY 12/08/10 Past Medical History Psychiatric: Anxiety, Depression Rheumotologic: Other (Arthritis ) Patient Family History: Alzheimer's disease G8 FATHER Malignant neoplasm of breast G8 MOTHER Smoker: No Hx (Negative) Alocohol: None Drugs: None Lives with: With family Domestic Violence: Neg Review of Systems Constitutional: No symptom reported Ears, Nose, & Throat: No symptom reported Eyes: No symptom reported Pulmonary/Respiratory: No symptom reported Cardiovascular: Chest Pain Gastrointestinal: No symptom reported Genitourinary: No symptom reported Musculoskeletal: No symptom reported Skin: No symptom reported Psychiatric: No symptom reported Endocrine: No symptom reported Hemotologic/Lymphatic: No symptom reported H&P Exam Vital Signs Vital Signs Date Time Temp Pulse Resp B/P (MAP) Pulse Ox O2 Delivery O2 Flow Rate FiO2 03/04/25 01:00 98.2 50 18 132/78 (96) 99 98.2 03/03/25 18:32 Room Air* 0 21 General Appeara: Well developed, Well nourished, Normal Appearance Head Exam: Normal inspection Neck Exam: Normal inspection, Non-tender, Normal alignment Eye Exam: bilateral eye Normal inspection, bilateral eye PERRL, bilateral eye EOMI Ear Exam: bilateral ear Auricle normal Nasal Exam: Normal inspection Mouth: Normal Inspection Pulmonary/Respiratory: Normal inspection, Normal breath sounds, Chest non- tender, Lungs clear Cardiovascular/Chest: Normal inspection, Regular rate, Normal Rhythm Peripheral Pulses: 2+ dorsalis pedis (R), 2+ dorsalis pedis (L), 2+ Radial (R), 2+ Radial (L) Abdominal Exam: Normal bowel sounds, Soft, No tenderness Legs: bilateral leg swelling MANAGER SCHEDULING Exam: Normal hearing, Normal speech, PERRL Motor/Sensory: Normal sensory function, Normal motor function Neuro/Mental St: Alert, Oriented Appearance: Appropriate appearance, Appropriate insight Eye contact/ Speech: Cooperative, Good eye contact, Normal speech Thoughts/Psych: Normal thought pattern Skin Exam: Normal inspection, Normal color, Warm/dry SEPSIS Sepsis Screen Date sepsis recognized/suspect: Mar 03, 2025 Time Sepsis recognized/suspect: 1830 Recent Procedure: No On Antibiotic Therapy: No Respiratory Rate >20: No Heart Rate >90: No Temp<36 C (96.8 F) or >38.3 C: No SBP <90 or MAP <65 mmHG: No New Acute Mental Status Change: No Is the patient on CPAP, BIPAP,: No Physician Orders Echo 2d Mode Cardiac Dop (03/03/25 19:04) Troponin-I Hs (03/04/25 06:00) Troponin-I Hs (03/04/25 14:00) Cardiac Diet-2gna,Lofat,Lochol (03/04/25 Breakfast) Ondansetron Hcl (Zofran) (03/03/25 19:15) Hydralazine Injection (Apresoline Inject (03/03/25 19:15) Aspirin Tablet (03/04/25 10:00) Atorvastatin (Lipitor) (03/03/25 22:00) Pantoprazole (Protonix) (03/04/25 10:00) Hydrocodone-Acet 5/325mg Tab ([place] 5/32 (03/03/25 19:15) Acetaminophen Tablet (Tylenol Tablet) (03/03/25 19:15) Ceftriaxone 1gm/50ml (Rocephin) (03/04/25 09:00) * Cardiology Consult (03/03/25 22:33) Basic Metabolic Panel (03/04/25 04:00) Magnesium (03/04/25 04:00) Vital Signs Date Time Temp Pulse Resp B/P (MAP) Pulse Ox O2 Delivery O2 Flow Rate FiO2 03/04/25 01:00 98.2 50 18 132/78 (96) 99 98.2 03/03/25 22:05 149/79 03/03/25 21:00 98.6 54 18 149/79 (102) 99 98.6 03/03/25 18:32 94 Room Air* 0 21 03/03/25 18:25 62 17 94 Room Air* 0 21 03/03/25 18:22 98.7 62 17 149/85 (106) 97 98.7 Laboratory Tests Test 03/03/25 14:33 White Blood Count 5.7 10^3/uL (4.4-10.8) Medications Medications Dose Ordered Sig/Bin Route Start Time Stop Time Status Last Admin Dose Admin Acetaminophen 650 mg Q6HPRN PRN PO 03/03/25 19:15 03/04/25 01:13 650 MG Atorvastatin Calcium 40 mg HS PO 03/03/25 22:00 03/03/25 22:05 40 MG Furosemide 40 mg ONCE ONCE IV 03/03/25 19:00 03/03/25 19:01 DC 03/03/25 22:05 40 MG Labs/Xrays Labs Test 03/03/25 21:53 03/03/25 14:33 Range/Units Troponin I High Sensitivity 4 </=34 ng/L White Blood Count 5.7 4.4-10.8 10^3/uL Red Blood Count 4.37 4.0-5.20 10^6/uL Hemoglobin 13.5 12.2-16.2 g/dL Hematocrit 39.7 36.0-46.0 % Mean Corpuscular Volume 90.9 80.0-100.0 fL Mean Corpuscular Hemoglobin 31.0 28.0-32.0 pg Mean Corpuscular Hemoglobin Concent 34.1 32.0-36.0 g/dL Red Cell Distribution Width 13.9 11.8-14.3 % Platelet Count 215 140-450 10^3/uL Mean Platelet Volume 7.7 6.9-10.8 fL Neutrophils (%) (Auto) 63.8 37.0-80.0 % Lymphocytes (%) (Auto) 23.6 10.0-50.0 % Monocytes (%) (Auto) 9.4 0.0-12.0 % Eosinophils (%) (Auto) 2.3 0.0-7.0 % Basophils (%) (Auto) 0.9 0.0-2.0 % Neutrophils # (Auto) 3.6 1.6-8.6 10 ^3/uL Lymphocytes # (Auto) 1.3 0.4-5.4 10 ^3/uL Monocytes # (Auto) 0.5 0-1.3 10 ^3/uL Eosinophils # (Auto) 0.1 0-0.8 10 ^3/uL Basophils # (Auto) 0.1 0-0.2 10 ^3/uL Nucleated Red Blood Cells 0.0 % Sodium Level 145 136-145 mmol/L Potassium Level 3.6 3.5-5.1 mmol/L Chloride Level 107 98-107 mmol/L Carbon Dioxide Level 26 20-31 mmol/L Anion Gap 12 5-15 Blood Urea Nitrogen 20 9-23 mg/dL Creatinine 0.91 0.550-1.02 mg/dL Glomerular Filtration Rate Calc 66 >90 mL/min BUN/Creatinine Ratio 22.0 H 10.0-20.0 Serum Glucose 82 74-106 mg/dL Calcium Level 9.3 8.7-10.4 mg/dL Total Bilirubin 0.5 0.2-1.0 mg/dL Aspartate Amino Transferase (AST) 33 13-40 U/L Alanine Aminotransferase (ALT) 24 7-40 U/L Alkaline Phosphatase 86 46-116 U/L B-Type Natriuretic Peptide 96.98 0-100 pg/mL Total Protein 6.9 5.7-8.2 g/dL Albumin 4.4 3.2-4.8 g/dL Assessment/Plan Problem List: (1) Chest pain Plan This is a 74 yo female with a history of anxiety, arthritis, depression who presents to the hospital with chest pain . 1. Chest pain r/o ACS 2. Anxiety 3. Depression Plan Admit Telemetry Cardiology consultation, 2D echocardiogram, serial troponin levels, ASA, Statin Discussed all above with patient who verbalizes agreement and understanding of care plan. All questions were answered. Discussed with supervising/admitting MD. Plan discussed with: Patient, Other Code Visit Code Visit Total Time (mins): 45 CAROL KIRK Mar 04, 2025 01:33 SOURAV GUERRERO MD Mar 04, 2025 16:16
[2025-03-04 08:49] LABS: Chloride 105 mmol/L (98-107); Potassium 3.9 mmol/L (3.5-5.1); Sodium 145 mmol/L (136-145)
[2025-03-04 08:50] LABS: Anion Gap 11 (5-15); Calcium 9.3 mg/dL (8.7-10.4); Carbon Dioxide 29 mmol/L (20-31)
[2025-03-04 08:55] LABS: BUN/Creatinine Ratio 23.9 (10.0-20.0); Blood Urea Nitrogen 22 mg/dL (9-23); Glucose 79 mg/dL (74-106)
[2025-03-04 08:56] LABS: Magnesium 2.1 mg/dL (1.6-2.6)
--- NOTE | 2025-03-04 09:33 | DVHINCON2 ---
Date Seen: Mar 04, 2025 Referring Physician Barber ARCEO Reason for Consultation chest pain History of Present Illness A 74-year-old female with PMH of anxiety, osteoarthritis, osteoporosis, and depression presents with intermittent chest pain, lower-extremity edema, and elevated blood pressure readings at home. HPI: Chest pain began in June after a dog-leash incident. Since then, pain recurs intermittently as a tight, pressure-like sensation, sometimes triggered by walking from her house to the mailbox and often worse when lying supine. She had another episode yesterday at 12:30 pm at rest. She reports poor functional capacity She also reports bilateral leg edema that improved after her PCP prescribed furosemide. Prior imaging reportedly ruled out DVT. She denies dyspnea, fever, cough, or orthopnea. No palpitations or syncope. At home, she measured elevated blood pressures using her own BP cuff and became concerned. On arrival her BP was 159/92 at 2 pm, and remained elevated through 10 pm. Only the 1 am and 4 am readings were normotensive. Her pulse on arrival was 100 with mild bradycardia at night. She otherwise felt stable. Given persistent elevated BP, low-dose losartan was started. She also shares she is scheduled for a urethral sling surgery on Friday, intended to address bladder support. She was referred to Dr. Payne for pre-op clearance but never saw the office. She is requesting assistance with medical clearance for the upcoming surgery during this hospitalization. Pertinent ROS: Positive for chest tightness and lower-extremity swelling. N egative for fever, cough, pleuritic pain, palpitations, syncope, vomiting, or abdominal pain. PMH: Anxiety, osteoarthritis, osteoporosis, depression. Meds: Celecoxib, tramadol, furosemide, ciprofloxacin (prescribe recently) EKG: Sinus rhythm, no ischemic changes. Troponins: Negative. CMP: Normal. BNP: Normal. Previous venous studies reportedly negative. Orders pending: TTE, chest/rib X-rays. Family History: Alzheimer's disease G8 FATHER Blood clots G8 FATHER Malignant neoplasm of breast G8 MOTHER Allergies: Coded Allergies: Codeine (Verified Allergy, Unknown, 09/10/19) Sulfa Drugs (Verified Allergy, Unknown, 09/10/19) Uncoded Allergies: CODINE (Allergy, Intermediate, 12/08/10) SULFA (Allergy, Intermediate, 12/08/10) TAPE (Allergy, Mild, 12/08/10) Home Meds Active Scripts Hydrocodone-Acetaminophen (Hydrocodone Bitartrate/AC 10-325 mg) 1 Tab Tab, 1 TAB PO Q6HP PRN, #20 TAB Prov:INGRID HART DO 07/27/21 Reported Medications Sumatriptan Succinate (Imitrex) 100 Mg Tab, PRN 12/08/10 Propranolol Hcl (Inderal) 20 Mg Tb, 10 BID 12/08/10 Pregabalin (Lyrica) 75 Mg Cap, BID 12/08/10 Alendronate Sodium (Fosamax) 70 Mg Tab, QWEEKLY 12/08/10 Current Medications Current Medications Medications (Trade) Dose Ordered Sig/Bin Route PRN Reason Start Time Stop Time Status Last Admin Nitroglycerin (Ntrostat Sublingual) 0.4 mg Q5MINP PRN SL FOR CHEST PAIN 03/03/25 17:15 Morphine Sulfate 2 mg Q30M PRN IV FOR CHEST PAIN 03/03/25 17:15 Ondansetron HCl (Zofran) 4 mg Q6HPRN PRN IV NAUSEA / VOMITING 03/03/25 19:15 Hydralazine HCl (Apresoline Injection) 10 mg Q6HP PRN IV SBP>160 03/03/25 19:15 Aspirin 81 mg DAILY PO 03/04/25 10:00 Atorvastatin Calcium (Lipitor) 40 mg HS PO 03/03/25 22:00 03/03/25 22:05 Pantoprazole Sodium (Protonix) 40 mg DAILY IV 03/04/25 10:00 Acetaminophen/ Hydrocodone Bitart (Colon 5/325MG Tab) 1 tab Q6HPRN PRN PO PAIN SCALE 1 THRU 6 03/03/25 19:15 Hold Acetaminophen (Tylenol Tablet) 650 mg Q6HPRN PRN PO PAIN SCALE 1-3 OR TEMP>100.4 03/03/25 19:15 03/04/25 01:13 Ceftriaxone Sodium 50 ml @ 100 mls/hr DAILY@09 IV 03/04/25 09:00 Review of Systems Pertinent ROS: Positive chest tightness and leg swelling. Negative orthopnea/PND per history given, negative palpitations, negative calf pain now, negative fevers/chills, negative cough/pleurisy, negative GI bleeding. Vital Signs Vital Signs Date Time Temp Pulse Resp B/P (MAP) Pulse Ox O2 Delivery O2 Flow Rate FiO2 03/04/25 04:56 98.3 62 17 106/62 (77) 97 98.3 03/03/25 21:17 Room Air* 0 21 Physical Exam General comfortable, speaking full sentences. Neck JVP not elevated. Lungs clear to auscultation. Cardiac RRR, no murmurs/rubs/gallops appreciated. Chest wall with focal left-sided tenderness to palpation over ribs/costochondral junctions Abdomen soft, NT/ND. Extremities no edema at ankles, no calf asymmetry, no cords, distal pulses intact. Neuro nonfocal, normal affect. Labs/Diagnostic Data Labs Test 03/04/25 06:44 03/03/25 14:33 Range/Units Troponin I High Sensitivity < 3 L </=34 ng/L White Blood Count 5.7 4.4-10.8 10^3/uL Red Blood Count 4.37 4.0-5.20 10^6/uL Hemoglobin 13.5 12.2-16.2 g/dL Hematocrit 39.7 36.0-46.0 % Mean Corpuscular Volume 90.9 80.0-100.0 fL Mean Corpuscular Hemoglobin 31.0 28.0-32.0 pg Mean Corpuscular Hemoglobin Concent 34.1 32.0-36.0 g/dL Red Cell Distribution Width 13.9 11.8-14.3 % Platelet Count 215 140-450 10^3/uL Mean Platelet Volume 7.7 6.9-10.8 fL Neutrophils (%) (Auto) 63.8 37.0-80.0 % Lymphocytes (%) (Auto) 23.6 10.0-50.0 % Monocytes (%) (Auto) 9.4 0.0-12.0 % Eosinophils (%) (Auto) 2.3 0.0-7.0 % Basophils (%) (Auto) 0.9 0.0-2.0 % Neutrophils # (Auto) 3.6 1.6-8.6 10 ^3/uL Lymphocytes # (Auto) 1.3 0.4-5.4 10 ^3/uL Monocytes # (Auto) 0.5 0-1.3 10 ^3/uL Eosinophils # (Auto) 0.1 0-0.8 10 ^3/uL Basophils # (Auto) 0.1 0-0.2 10 ^3/uL Nucleated Red Blood Cells 0.0 % Total Bilirubin 0.5 0.2-1.0 mg/dL Aspartate Amino Transferase (AST) 33 13-40 U/L Alanine Aminotransferase (ALT) 24 7-40 U/L Alkaline Phosphatase 86 46-116 U/L B-Type Natriuretic Peptide 96.98 0-100 pg/mL Total Protein 6.9 5.7-8.2 g/dL Albumin 4.4 3.2-4.8 g/dL Assessment 1) Chest pain due to bilateral ribs fractures: chronic intermittent, post-traumatic, worse supine, occasionally exertional; EKG/troponins negative from June trauma. Plan: TTE prelim normal EF, ESR/CRP negative ; chest/rib X-rays: bilateral ribs fractures. 2) Lower-extremity edema, improved on furosemide; BNP normal; lungs clear. Likely venous insufficiency or volume-related; mild HFpEF remains possible. Plan: TTE prelim normal, normal albumin, TSH normal; leg elevation, compression stockings if appropriate 3) Hypertension with persistent elevated BP in ED and at home. Likely chronic hypertension Plan: Start low-dose losartan; monitor pressures; summer counselor low-salt diet; assess for chronic hypertension diagnosis after trend review; adjust regimen as needed. 4) Pre-operative clearance requested for upcoming urethral sling surgery on Friday. She was referred to Dr. Payne but never evaluated. She is low-risk for ambulatory urogynecologic surgery: chest pain is due to rib fractures 5) Chronic conditions: Anxiety, depression, osteoarthritis, osteoporosis. Plan: Follow up with PCP Case discussed with Dr Green Plan discussed with: Patient NYHA Physical activity limitations: Class1(None)absent sob, Date of Service: Mar 04, 2025 Billing Provider: NEERU YUSUF MD Cardiology Common Codes: 89626-[id number] CARE 30-74 MIN FABIANA WILSON RESIDENT Mar 04, 2025 09:33
[2025-03-04] MEDS: PANTOPRAZOLE 40 MG/10 ML VIAL INJ IV SCH (09:42)
[2025-03-04] MEDS: LOSARTAN POTASSIUM 25 MG TAB PO SCH (09:43)
--- NOTE | 2025-03-04 10:49 | DVH ---
CLINICAL INDICATION: chest pain TECHNIQUE: 7 radiographic views of the bilateral ribs were obtained. Comparison: None FINDINGS/IMPRESSION: Anterior fusion lower cervical spine. No displaced rib fractures on the right or left No pleural thickening or pleural effusions. No pneumothorax. Dextroscoliosis lumbar spine. Pedicle screws and rods in place at L5-S1.
[2025-03-04 12:52] LABS: Urine Protein, UAD Negative (Negative)
--- NOTE | 2025-03-04 16:19 | DVHDS2 ---
Discharge Summary Date of Admission Mar 03, 2025 at 17:14 Date of Discharge: Mar 04, 2025 Labs/Diagnostic Data: Laboratory Results Test 03/04/25 14:15 03/04/25 09:50 03/04/25 06:44 03/03/25 14:33 Troponin I High Sensitivity 3 ng/L (</=34) Urine Color Light-yellow (Yellow) Urine Clarity Clear (Clear) Urine pH 5.0 (5.0-9.0) Urine Specific [place] 1.011 (1.001-1.035) Urine Protein Negative (Negative) Urine Ketones Negative (Negative) Urine Blood Negative /uL (Negative) Urine Nitrite Negative (Negative) Urine Bilirubin Negative (Negative) Urine Urobilinogen Normal mg/dL (Negative) Urine Leukocyte Esterase Negative /uL (Negative) Urine RBC 1 /hpf (0 - 4) Urine Microscopic WBC 1 /HPF (0-5) Urine Squamous Epithelial Cells Few /hpf (<5) Urine Bacteria None seen /hpf (None Seen) Urine Hyaline Casts Few /lpf (0 - 2) Urine Mucus Few (None Seen) Urine Glucose Normal mg/dL (Normal) Erythrocyte Sedimentation Rate 10 mm/hr (0-20) Sodium Level 145 mmol/L (136-145) Potassium Level 3.9 mmol/L (3.5-5.1) Chloride Level 105 mmol/L (98-107) Carbon Dioxide Level 29 mmol/L (20-31) Anion Gap 11 (5-15) Blood Urea Nitrogen 22 mg/dL (9-23) Creatinine 0.92 mg/dL (0.550-1.02) Glomerular Filtration Rate Calc 65 mL/min (>90) BUN/Creatinine Ratio 23.9 (10.0-20.0) Serum Glucose 79 mg/dL (74-106) Calcium Level 9.3 mg/dL (8.7-10.4) Magnesium Level 2.1 mg/dL (1.6-2.6) C-Reactive Protein High Sensitivity 0.09 mg/dL (<1.0) Thyroid Stimulating Hormone (TSH) 4.31 uIU/mL (0.55-4.78) White Blood Count 5.7 10^3/uL (4.4-10.8) Red Blood Count 4.37 10^6/uL (4.0-5.20) Hemoglobin 13.5 g/dL (12.2-16.2) Hematocrit 39.7 % (36.0-46.0) Mean Corpuscular Volume 90.9 fL (80.0-100.0) Mean Corpuscular Hemoglobin 31.0 pg (28.0-32.0) Mean Corpuscular Hemoglobin Concent 34.1 g/dL (32.0-36.0) Red Cell Distribution Width 13.9 % (11.8-14.3) Platelet Count 215 10^3/uL (140-450) Mean Platelet Volume 7.7 fL (6.9-10.8) Neutrophils (%) (Auto) 63.8 % (37.0-80.0) Lymphocytes (%) (Auto) 23.6 % (10.0-50.0) Monocytes (%) (Auto) 9.4 % (0.0-12.0) Eosinophils (%) (Auto) 2.3 % (0.0-7.0) Basophils (%) (Auto) 0.9 % (0.0-2.0) Neutrophils # (Auto) 3.6 10 ^3/uL (1.6-8.6) Lymphocytes # (Auto) 1.3 10 ^3/uL (0.4-5.4) Monocytes # (Auto) 0.5 10 ^3/uL (0-1.3) Eosinophils # (Auto) 0.1 10 ^3/uL (0-0.8) Basophils # (Auto) 0.1 10 ^3/uL (0-0.2) Nucleated Red Blood Cells 0.0 % Total Bilirubin 0.5 mg/dL (0.2-1.0) Aspartate Amino Transferase (AST) 33 U/L (13-40) Alanine Aminotransferase (ALT) 24 U/L (7-40) Alkaline Phosphatase 86 U/L (46-116) B-Type Natriuretic Peptide 96.98 pg/mL (0-100) Total Protein 6.9 g/dL (5.7-8.2) Albumin 4.4 g/dL (3.2-4.8) Other Laboratory Tests 03/04/25 06:44 03/03/25 14:33 Final Diagnosis/Problems List Chest pain MT ruled out 2. Chest pain secondary to costochondritis 3. Anxiety and depression disorder, decompensated. Discharge Disposition: Home Discharge Instruct/Medications Diet: Cardiac 2g Na,low cholest Activity: No Restrictions, As Tolerated Follow Up/Referral: Please follow up with PCP in 1-2 weeks. Medications: Resume home medication Scheduled Alendronate Sodium (Fosamax), QWEEKLY, (Reported) Pregabalin (Lyrica), BID, (Reported) Propranolol Hcl (Inderal), 10 BID, (Reported) Sumatriptan Succinate (Imitrex), PRN, (Reported) Scheduled PRN Hydrocodone-Acetaminophen (Hydrocodone Bitartrate/AC 10-325 mg), 1 TAB PO Q6HP PRN Discharge Statement: "Patient was advised to return to the ER or call 911 if any headaches, dizziness, shortness of breath, chest pain, abdominal pain, bleeding, fevers, or worsening of medical condition. Patient was counseled about treatment plan, medications, possible side effects, patientverbalized understanding. All questions were answered to the best of my ability. This discharge took greater then 30 minutes in planning, reviewing documentation, counseling the patient, and discussing with other team members." ASSESSMENT ASSESSMENT Assessment Chest pain MT ruled out 2. Chest pain secondary to costochondritis 3. Anxiety and depression disorder, decompensated. SOURAV GUERRERO MD Mar 04, 2025 16:18
--- NOTE | 2025-03-06 11:24 | DVHSR ---
APPROVED REPORT EXAM: Two-dimensional and M-mode echocardiogram with Doppler and color Doppler. Blood Pressure: 106/62 mmHg INDICATION Chest Pain RISK FACTORS Height: 5'6, Weight: 137 DIMENSIONS LVDd 3.2 (3.8-5.7cm) LA (2D) 3.6 (1.9-4.0cm) Aortic Root 3.4 (2.0-3.7cm) LVDs 2.3 (2.5-4.0cm) LA (MM) (1.9-4.0cm) Aortic Cusp Exc 1.6 (1.5-2.0cm) EF (%) 55.0 (55-70%) Rt. Atrium 2.5 (1.9-4.0cm) Asc. Aorta cm IVSd 0.8 (0.7-1.1cm) RV (D) 3.7 (1.8-2.4cm) PWd 1.2 (0.7-1.1cm) Mitral Valve Mitral Mitral Stenosis E wave 0.57m/s MV Mean GR. mmHg A wave 0.84m/s MV Peak GR. 83mmHg E/A ratio 0.7 2D MVA cm2 DECEL Time 357ms PRESS 1/2 Time ms Aortic Valve Aortic Valve Aortic Stenosis V1 1.12m/s AO Mean GR. 6mmHg V2 1.55m/s AO Peak GR. 10mmHg LVOT Diameter 2.1 (1.8-2.4cm) Doppler ALKA 2.50cm2 AI P 1/2 Time 729.12ms Pulmonic Valve V2 0.78m/s Tricuspid Valve TR Velocity 2.17m/s RVSP 22mmHg Conclusion EF 55% MILD AI MILD AV SCLEROSIS MILD PI
== END 2025-03-04 18:00 | disposition home or self-care (01) | DRG 205 ==
LOC: ER 14:05 → OVERFLOW 17:14 → TELE-EAST 20:34
PROVIDERS: ADMIT Internal Medicine; ATTEND Internal Medicine
DX: M94.0 Chondrocostal junction syndrome [Tietze] (principal); I50.33 Acute on chronic diastolic (congestive) heart failure; I51.3 Intracardiac thrombosis, not elsewhere classified; F02.84 Dementia in other diseases classified elsewhere, unspecified severity, with anxiety; F32.A Depression, unspecified; F02.83 Dementia in other diseases classified elsewhere, unspecified severity, with mood disturbance; F41.9 Anxiety disorder, unspecified; G30.9 Alzheimer's disease, unspecified; M81.0 Age-related osteoporosis without current pathological fracture; Z88.5 Allergy status to narcotic agent; Z88.2 Allergy status to sulfonamides; Z90.710 Acquired absence of both cervix and uterus; Z82.0 Family history of epilepsy and other diseases of the nervous system; Z85.3 Personal history of malignant neoplasm of breast; Z80.3 Family history of malignant neoplasm of breast; Z79.899 Other long term (current) drug therapy
CPT/HCPCS: 36415; 71045; 71111; 80048; 80053; 81001; 83735; 83880; 84443; 84484; 85025; 85652; 86141; 93005; 93306; 99291; G0378; J2470

== ENCOUNTER 2025-03-07 00:30 | Emergency (ER) | payer OTHER ==
[~2025-03-07] VITALS: Ht 172.7 cm; Wt 68.0 kg
[2025-03-07] MEDS: diazePAM 5 MG TAB PO ONE (03:15)
--- NOTE | 2025-03-07 03:45 | ED.PDOC ---
History of Present Illness HPI Comments 74-year-old female is brought in by ambulance with spouse for chief complaint of posterior neck and lower back pain. Patient reports on history of chronic pain following a fall injury she sustained 8 months ago after landing on her back. She comments most recent flare-up of pain starting last night and taking her prescribed tramadol at 6:00 p.m. and having no relief or improvement. Patient denies on any additional recent trauma or injury.Pain worsens more movement. She denies and a having any further acute symptoms, such as weakness, numbness, or tingling. REVIEW OF SYSTEMS: General: No fever, no chills, HEENT: Neck pain, no blurred vision Cardiac: No chest pain. No palpitations. Lungs: No shortness of breath, GI: No abdominal pain, no vomiting Musculoskeletal: Lower back pain. No joint pain. Skin: No rash, no wound Neuro: No headache, no dizziness, no syncope PHYSICAL EXAM: General: Awake, alert and oriented. No acute distress. Skin: Skin in warm, dry and intact without rashes or lesions. HEENT: The head is normocephalic and atraumatic. Conjunctivae are clear without exudates or hemorrhage. Sclera is non-icteric. Neck: Normal range of motion. No JVD. Cardiac: Regular rate Respiratory: No signs of respiratory distress. No Stridor. Musculoskeletal: Bilateral trapezius tenderness with decreased range of motion to C-spine. Extremities: Upper and lower extremities are atraumatic in appearance without deformity. Neurological: The patient is awake, alert and oriented to person, place, and ti me with normal speech. Speech is clear. There is no facial asymmetry. Strength in upper extremities intact. Psychiatric: Appropriate mood and affect. Good judgement and insight. Chief Complaint: Neck Pain Time Seen by MD: 03:00 Primary Care Provider: NICOLLE Reviewed Notes: Nurses Notes, Online Marketing Specialist Notes, Medications, Allergies Allergies: Coded Allergies: Codeine (Verified Allergy, Unknown, 09/10/19) Sulfa Drugs (Verified Allergy, Unknown, 09/10/19) Uncoded Allergies: CODINE (Allergy, Intermediate, 12/08/10) SULFA (Allergy, Intermediate, 12/08/10) TAPE (Allergy, Mild, 12/08/10) Home Meds Active Scripts Hydrocodone-Acetaminophen (Hydrocodone Bitartrate/AC 10-325 mg) 1 Tab Tab, 1 TAB PO Q6HP PRN, #20 TAB Prov:INGRID HART DO 07/27/21 Reported Medications Sumatriptan Succinate (Imitrex) 100 Mg Tab, PRN 12/08/10 Propranolol Hcl (Inderal) 20 Mg Tb, 10 BID 12/08/10 Pregabalin (Lyrica) 75 Mg Cap, BID 12/08/10 Alendronate Sodium (Fosamax) 70 Mg Tab, QWEEKLY 12/08/10 Information Source: Patient, Emergency Med Personnel Mode of Arrival: EMS Severity: Moderate Timing: Months Duration: Since onset Prehospital treatment: 12 Lead EKG, [employer]inder Past Medical History PAST MEDICAL HISTORY: Anxiety, Arthritis, Depression Surgical History: Appendectomy, Hernia Repair, Hysterectomy [employer]OR History: No Pertinent [employer] History Family History Family History: No family hx of Heart binu, No family hx of HTN Family History (Other): Blood clots Social History Smoker: Non-Smoker Alcohol: Rarely Drugs: Denies Drug Use Lives In: Home Was a procedure done? Was a procedure done?: No Differential Dx Considerations may include: Differential diagnoses considered include but are not limited to back strain or sprain, degenerative disc disease, herniated disc, spinal stenosis, spinal epidural abscess, spinal fracture, metastatic cancer, epidural hematoma, osteom yelitis, other X-Ray, Labs, Meds, VS Vital Signs Date Time Temp Pulse Resp B/P (MAP) Pulse Ox O2 Delivery O2 Flow Rate FiO2 03/07/25 00:54 97.3 103 22 117/65 98 97.3 Current Medications Medications (Trade) Dose Ordered Sig/Bin Route Start Time Stop Time Status Last Admin Diazepam (Valium Tablet) 5 mg ONCE ONCE PO 03/07/25 03:15 03/07/25 03:16 DC 03/07/25 03:15 Acetaminophen (Tylenol Tablet Or Capsule) 1,000 mg ONCE ONCE PO 03/07/25 03:15 03/07/25 03:16 DC 03/07/25 04:[address] [address] Ph: [phone] DIAGNOSTIC IMAGING Diagnostic Imaging Report : [id number] Signed PATIENT: JOSÉ MANUEL CHRISTINA ACCT: [id number] UNIT: [id number] : 1950 LOC: ER ROOM / BED: / AGE / SEX: 74 / F ADM STATUS: REG ER SERVICE 5 ORDERING PHYSICIAN: REBECA COVARRUBIAS MD PROCEDURE(s): CS2 - CERVICAL WITHOUT CONTRAST REASON: Severe neck pain, decreased range of motion ORDER NUMBER(s): [id number], ACCESSION NUMBER(s): [id number] EXAM: CT CERVICAL WITHOUT CONTRAST HISTORY: Severe neck pain, decreased range of motion COMPARISON: CT BRAIN/HEAD WO on DOS: 01/08/25 CTDIvol 16.86 mGy, DLP 452.99 mGy*cm. TECHNIQUE: Multiple axial CT images of the spine were obtained using bone algorithm. Axial and coronal reformatting was done. Bone and soft tissue windows were reviewed. FINDINGS: No CT evidence of definite acute fracture, spinal dislocation, or significant appearing acute subluxation is seen. The visualized paraspinal soft tissues are grossly unremarkable. Hardware status post C4 through C6 anterior discectomy and fusion without evidence of complication. Severe disc height loss and partial osseous fusion at the C2-C3, C3-C4, C6-C7 and C7-T1 levels. Multilevel anterior osteophytosis and moderate bilateral multilevel facet hypertrophy. IMPRESSION: 1. No definite CT evidence of acute fracture or dislocation of the bony cervical spine. 2. Multilevel degenerative changes of the cervical spine with severe disc height loss and partial osseous fusion at the C2-C3, C3-C4, C6-C7 and C7-T1 levels. 3. Hardware status post C4 through C6 anterior discectomy and fusion without evidence of complication. ATED BY: SEVERINO GÓMEZ MD DICTATED DATE/TIME: 03/07/25401 SIGNED BY: SEVERINO GÓMEZ MD SIGNED DATE/TIME: 03/07/25401 CC: Time of 1ST Reevaluation: 03:33 Reevaluation 1ST: Unchanged Patient Education/Counseling: Need For Follow Up Family Education/Counseling: Need For Follow Up SEPSIS Sepsis Screen Date sepsis recognized/suspect: Mar 07, 2025 Time Sepsis recognized/suspect: 0059 Recent Procedure: No On Antibiotic Therapy: No Respiratory Rate >20: No Heart Rate >90: Yes Temp<36 C (96.8 F) or >38.3 C: No SBP <90 or MAP <65 mmHG: No New Acute Mental Status Change: No Is the patient on CPAP, BIPAP,: No Physician Orders Cervical Without Contrast (03/07/25 03:06) Vital Signs Date Time Temp Pulse Resp B/P (MAP) Pulse Ox O2 Delivery O2 Flow Rate FiO2 03/07/25 00:54 97.3 103 22 117/65 98 97.3 Medications Medications Dose Ordered Sig/Bin Route Start Time Stop Time Status Last Admin Dose Admin Acetaminophen 1,000 mg ONCE ONCE PO 03/07/25 03:15 03/07/25 03:16 DC 03/07/25 04:10 Diazepam 5 mg ONCE ONCE PO 03/07/25 03:15 03/07/25 03:16 DC 03/07/25 03:15 Departure 1 Departure Time of Disposition: 05:24 Impression: Primary Impression: Neck pain Disposition: HOME / SELF CARE / HOMELESS Condition: Stable Additional Instructions: ED DISCHARGE INSTRUCTIONS Instructions: Please read all instructions provided in this packet carefully. A copy of your CAT scan report is included below. Please say if this packet and take it to your next follow up appointment. Although you have been discharged from the Emergency Department, this does not mean that you have a "clean bill of health". []No definitive diagnosis for your symptoms has been made today. It is possible that you are in the process of developing a serious illness. This is why you must return to the ED without fail if any new or worsening symptoms (especially if your symptoms include chest pain, trouble breathing, abdominal pain, fever, headache, confusion, trouble seeing, or trouble walking) It is also very important that you see a primary care provider (PCP) within the next 3-5 days to follow up. If you are unable to get an appointment, return to the ED for re-evaluation. PROCEDURE(s): CS2 - CERVICAL WITHOUT CONTRAST REASON: Severe neck pain, decreased range of motion ORDER NUMBER(s): [id number], ACCESSION NUMBER(s): [id number] EXAM: CT CERVICAL WITHOUT CONTRAST HISTORY: Severe neck pain, decreased range of motion COMPARISON: CT BRAIN/HEAD WO on DOS: 01/08/25 CTDIvol 16.86 mGy, DLP 452.99 mGy*cm. TECHNIQUE: Multiple axial CT images of the spine were obtained using bone algorithm. Axial and coronal reformatting was done. Bone and soft tissue windows were reviewed. FINDINGS: No CT evidence of definite acute fracture, spinal dislocation, or significant appearing acute subluxation is seen. The visualized paraspinal soft tissues are grossly unremarkable. Hardware status post C4 through C6 anterior discectomy and fusion without evidence of complication. Severe disc height loss and partial osseous fusion at the C2-C3, C3-C4, C6-C7 and C7-T1 levels. Multilevel anterior osteophytosis and moderate bilateral multilevel facet hypertrophy. IMPRESSION: 1. No definite CT evidence of acute fracture or dislocation of the bony cervical spine. 2. Multilevel degenerative changes of the cervical spine with severe disc height loss and partial osseous fusion at the C2-C3, C3-C4, C6-C7 and C7-T1 levels. 3. Hardware status post C4 through C6 anterior discectomy and fusion without evidence of complication. ATED BY: SEVERINO GÓMEZ MD DICTATED DATE/TIME: 03/07/25401 SIGNED BY: SEVERINO GÓMEZ MD SIGNED DATE/TIME: 03/07/25401 Comments MDM: 74-year-old female with exacerbation of chronic neck pain. No Neuro deficit on exam. Patient well-appearing, nontoxic. Advised prompt follow-up with PCP, return to the ED with any new, worsening or concerning symptoms. Extensive evaluation was performed in attempt to identify or rule out: (See d ifferential diagnosis section) The following tests were ordered, and results were reviewed by me and discussed with patient: (See diagnostic results section) The following test were independently interpreted by me: N/A I reviewed the following notes from the pt's past medical encounters: March 03, 2025 encounter for chest pain rule out NH Additional information was gathered from interviewing the following independent historians: Spouse Decision regarding hospitalization or escalation of hospital level of care: Risks and benefits of admission for further treatment of patient's condition was considered however due to patient's stable condition patient will be discharged to follow up closely or return to care for worsening of condition or inability to follow up. Critical Care Note Critical Care Time?: No Stability Stability form required: No Heart Score Heart Score: Heart Score Response (Comments) Value History N/A 0 EKG N/A 0 Age N/A 0 Risk Factors N/A 0 Troponin N/A 0 Total 0 I personally scribed for REBECA COVARRUBIAS MD ([email or web address]) on 03/07/25 at 03:45. Electronically submitted by Maicol Mathis ([email or web address]). I personally scribed for REBECA COVARRUBIAS MD ([email or web address]) on 03/07/25 at 04:28. Electronically submitted by Maicol Mathis ([email or web address]). REBECA COVARRUBIAS MD Mar 07, 2025 03:45
--- NOTE | 2025-03-07 04:04 | DVH ---
EXAM: CT CERVICAL WITHOUT CONTRAST HISTORY: Severe neck pain, decreased range of motion COMPARISON: CT BRAIN/HEAD WO on DOS: 01/08/25 CTDIvol 16.86 mGy, DLP 452.99 mGy*cm. TECHNIQUE: Multiple axial CT images of the spine were obtained using bone algorithm. Axial and coronal reformatting was done. Bone and soft tissue windows were reviewed. FINDINGS: No CT evidence of definite acute fracture, spinal dislocation, or significant appearing acute subluxation is seen. The visualized paraspinal soft tissues are grossly unremarkable. Hardware status post C4 through C6 anterior discectomy and fusion without evidence of complication. Severe disc height loss and partial osseous fusion at the C2-C3, C3-C4, C6-C7 and C7-T1 levels. Multilevel anterior osteophytosis and moderate bilateral multilevel facet hypertrophy. IMPRESSION: 1. No definite CT evidence of acute fracture or dislocation of the bony cervical spine. 2. Multilevel degenerative changes of the cervical spine with severe disc height loss and partial osseous fusion at the C2-C3, C3-C4, C6-C7 and C7-T1 levels. 3. Hardware status post C4 through C6 anterior discectomy and fusion without evidence of complication.
[2025-03-07] MEDS: ACETAMINOPHEN 500 MG TAB or CAP PO ONE (04:10)
[2025-03-07 07:34] VITALS: BP 128/63; PULSE 78; RESP 16; TEMP 98.7; O2SAT 97
== END 2025-03-07 07:36 | disposition home or self-care (01) ==
LOC: ER 00:30 → EDBD 00:30 → EDUNIT# 00:30 → ER 07:36
DX: M54.2 Cervicalgia (principal); F41.9 Anxiety disorder, unspecified; Z88.2 Allergy status to sulfonamides; Z88.5 Allergy status to narcotic agent; Z90.49 Acquired absence of other specified parts of digestive tract; Z90.710 Acquired absence of both cervix and uterus; Z98.890 Other specified postprocedural states
CPT/HCPCS: 72125